=== PATIENT | male | born 1960 | race Caucasian/White ===

== ENCOUNTER 2017-09-19 10:36 | Emergency (ER) | payer OTHER, SELFPAY ==
--- NOTE | 2017-09-19 10:49 | ED_ITS ---
HPI - Anxiety <JENY Lucero - Last Filed: 09/19/17 20:55> General Chief Complaint: Hypertension Stated Complaint: HIGH BP, ANXIETY Time Seen by Provider: 09/19/17 10:49 Source: patient Mode of arrival: ambulatory Limitations: no limitations History of Present Illness HPI narrative: 57-year-old male here for complaint of having feelings of anxiousness over the past couple of days. He also states that he has had some mild lightheadedness. A clean over the same timeframe. He denies any shortness of breath. No chest pain. He reports that he is recently started a new blood pressure medicine amlodipine and thought that his blood pressure was a little high earlier today when it was 150 over 90. He denies any chest pain. No fevers no chills. He denies any nausea vomiting. Positive p.o. intake. No other concerns or complaints at this time. MD complaint: anxiety Related Data Home Medications Medication Instructions Recorded Confirmed fexofenadine 180 mg PO QDAY #0 tab 11/04/15 09/19/17 imipramine HCl 25 mg PO BEDTIME #0 tab 11/04/15 09/19/17 meclizine 25 mg PO PRN PRN #0 11/04/15 09/19/17 multivitamin [Multiple Vitamins] 1 tab PO QDAY #0 tab 11/04/15 09/19/17 pravastatin 20 mg PO BEDTIME #0 11/04/15 09/19/17 sertraline 50 mg PO QDAY #0 11/04/15 09/19/17 tadalafil [Cialis] 20 mg PO PRN PRN #0 11/04/15 09/19/17 tamsulosin [Flomax] 0.4 mg PO BID #0 11/04/15 09/19/17 Vitamin C 1 tab PO DAILY 09/19/17 09/19/17 amlodipine 5 mg PO DAILY 09/19/17 09/19/17 colchicine [Colcrys] 0.6 mg PO BID 09/19/17 09/19/17 duloxetine 60 mg PO DAILY 09/19/17 09/19/17 gemfibrozil 600 mg PO BID 09/19/17 09/19/17 hyoscyamine sulfate 1 tab PO DIRECTED PRN 09/19/17 09/19/17 lisinopril 40 mg PO BID 09/19/17 09/19/17 omeprazole 20 mg PO DAILY 09/19/17 09/19/17 polyethylene glycol 3350 [Miralax] 1 packet PO DAILY 09/19/17 09/19/17 propranolol 10 mg PO BID 09/19/17 09/19/17 vitamin E 1 cap PO DAILY 09/19/17 09/19/17 Allergies Allergy/AdvReac Type Severity Reaction Status Date / Time No Known Drug Allergies Allergy Verified 09/19/17 13:16 Review of Systems <JENY Lucero - Last Filed: 09/19/17 20:55> Constitutional Denies chills, Denies fever(s), Denies lethargy and Denies weakness Eyes Denies change in vision, Denies eye discharge, Denies irritation and Denies loss of vision ENT Ears, Nose, Mouth, and Throat: Denies change in voice, Denies neck pain and Denies sore throat Cardiovascular Denies chest pain, Denies irregular heart rhythm, Denies lightheadedness, Denies palpitations, Denies dyspnea, Denies dyspnea on exertion and Denies orthopnea Respiratory Denies cough, Denies dyspnea, Denies dyspnea on exertion and Denies wheezing Gastrointestinal Gastrointestinal: Denies abdominal pain, Denies change in bowel habits, Denies diarrhea, Denies nausea and Denies vomiting Genitourinary Denies hematuria, Denies flank pain, Denies urinary incontinence and Denies urinary urgency Musculoskeletal Denies neck pain Neurologic Denies confusion, Denies loss of vision and Denies weakness Comments: Anxiety and periodic lightheadedness Psychiatric Denies anxiety, Denies confusion, Denies depression, Denies homicidal ideation and Denies suicidal ideation Endocrine Denies palpitations Allergic/Immunologic Denies wheezing Exam <JENY Lucero - Last Filed: 09/19/17 20:55> Initial Vital Signs Initial Vital Signs: Vital Signs Temperature 98.0 F 09/19/17 10:51 Pulse Rate 75 09/19/17 10:51 Respiratory Rate 20 09/19/17 10:51 Blood Pressure 129/94 H 09/19/17 10:51 Pulse Oximetry 98 09/19/17 10:51 Const General: cooperative and well developed Nutritional Appearance: well nourished Orientation: alert, awake, oriented x3 and not confused HENMT Mouth: oral mucosae normal and moist mucous membranes Eyes Conjunctivae: conjunctivae normal Sclera: sclerae normal Pupils: PERRL EOM: EOM intact bilaterally Resp Effort & Inspection: normal respiratory effort, able to speak in complete sentences, no respiratory distress and no use of accessory muscles Auscultation: clear to auscultation bilaterally, no rales, no rhonchi and no wheezes Cardio Rate: regular rate Rhythm: regular rhythm Heart Sounds: no click, no gallops, no murmurs and no rubs Pulses: normal peripheral pulses Skin General: no rashes or lesions noted, No jaundice and No petechiae Neuro General: alert, oriented x3, gait normal and no focal motor deficits Speech: speech normal Psych Appearance: well kempt Mental Status: mental status grossly normal Attitude: cooperative Thought Content: normal and suicidality Judgment: judgment good <Chan Almaraz DO - Last Filed: 09/20/17 19:28> Initial Vital Signs Initial Vital Signs: Vital Signs Temperature 98.0 F 09/19/17 10:51 Pulse Rate 75 09/19/17 10:51 Respiratory Rate 20 09/19/17 10:51 Blood Pressure 129/94 H 09/19/17 10:51 Pulse Oximetry 98 09/19/17 10:51 Course <JENY Lucero - Last Filed: 09/19/17 20:55> Orders Ordered: Discontinued Medications Sodium Chloride (Normal Saline 0.9%) 1,000 mls @ 1,000 mls/hr IV BOLUS ONE Stop: 09/19/17 12:31 Last Infusion: 09/19/17 13:59 Dose: 0 mls/hr Infusion: 09/19/17 13:16 Dose: 1,000 mls/hr Infusion: 09/19/17 12:50 Dose: 0 mls/hr Admin: 09/19/17 12:15 Dose: 1,000 mls/hr Sodium Chloride (Normal Saline 0.9%) 1,000 mls @ 1,000 mls/hr IV BOLUS ONE Stop: 09/19/17 13:48 Last Admin: 09/19/17 13:17 Dose: Vital Signs - 8 hr 09/19/17 13:11 09/19/17 14:00 09/19/17 14:51 Pulse Rate 69 75 Pulse Rate [Orthostatic Lying] 71 Pulse Rate [Orthostatic Sitting] 85 Pulse Rate [Orthostatic Standing] 78 Respiratory Rate 16 16 Blood Pressure 144/87 H Blood Pressure [Left Arm] 143/86 H Blood Pressure [Orthostatic Lying] 133/76 H Blood Pressure [Orthostatic Sitting] 137/86 H Blood Pressure [Orthostatic Standing] 140/85 H Pulse Oximetry 100 100 <Chan Almaraz DO - Last Filed: 09/20/17 19:28> Orders Ordered: Discontinued Medications Sodium Chloride (Normal Saline 0.9%) 1,000 mls @ 1,000 mls/hr IV BOLUS ONE Stop: 09/19/17 12:31 Last Infusion: 09/19/17 13:59 Dose: 0 mls/hr Infusion: 09/19/17 13:16 Dose: 1,000 mls/hr Infusion: 09/19/17 12:50 Dose: 0 mls/hr Admin: 09/19/17 12:15 Dose: 1,000 mls/hr Sodium Chloride (Normal Saline 0.9%) 1,000 mls @ 1,000 mls/hr IV BOLUS ONE Stop: 09/19/17 13:48 Last Admin: 09/19/17 13:17 Dose: Vital Signs - 8 hr 09/19/17 13:11 09/19/17 14:00 09/19/17 14:51 Pulse Rate 69 75 Pulse Rate [Orthostatic Lying] 71 Pulse Rate [Orthostatic Sitting] 85 Pulse Rate [Orthostatic Standing] 78 Respiratory Rate 16 16 Blood Pressure 144/87 H Blood Pressure [Left Arm] 143/86 H Blood Pressure [Orthostatic Lying] 133/76 H Blood Pressure [Orthostatic Sitting] 137/86 H Blood Pressure [Orthostatic Standing] 140/85 H Pulse Oximetry 100 100 MDM - Anxiety <JENY Lucero - Last Filed: 09/19/17 20:55> Lab Data Result diagrams: 09/19/17 11:56 09/19/17 11:56 Lab Results 09/19/17 09/19/17 Range/Units 11:56 11:56 WBC 4.9 (4.5-11.0) X10^3/uL RBC 4.52 (4.5-5.9) X10^6/uL Hgb 14.1 (13.5-17.5) g/dL Hct 39.6 L (41-53) % MCV 87.6 (80-100) fL MCH 31.2 (26-34) PG MCHC 35.6 (30-36) % RDW 13.6 (11.6-14.8) % Plt Count 242 (150-400) X10^3/uL Neut % (Auto) 51.3 (50-75) % Lymph % (Auto) 35.2 (25-40) % Gulf % (Auto) 11.1 (3-14) % Eos % (Auto) 1.8 L (2-4) % Baso % (Auto) 0.6 (0-2) % Neut # (Auto) 2500 L (9371-8725) /uL Sodium 138 (137-145) mmol/L Potassium 4.6 (3.4-5.1) mmol/L Chloride 104 (98-107) mmol/L Carbon Dioxide 28 (22-32) mmol/L BUN 25 H (9-20) mg/dL Creatinine 1.70 H (0.66-1.25) mg/dL Estimated GFR 41.9 L (>60) mL/min BUN/Creatinine Ratio 14.7 (6-22) Glucose 114 H (70-100) mg/dL Calcium 9.5 (8.4-10.2) mg/dL Total Bilirubin 0.5 (0.2-1.3) mg/dL AST 30 (17-59) IU/L ALT 33 (21-72) IU/L Alkaline Phosphatase 109 (38-126) U/L Total Creatine Kinase 44 L (55-170) U/L Troponin I < 0.012 (0.01-0.034) ng/mL Total Protein 6.7 (6.3-8.2) g/dL Albumin 3.9 (3.5-5.0) g/dL Globulin 2.8 (1.7-4.1) g/dL Albumin/Globulin Ratio 1.4 (1.0-2.8) Imaging Data CT scan - head: Radiologist's impression: Patient: Allan Bruno MR#: [id number] : 1960 Acct:[id number] Age/Sex: 57 / M Date of Service: 09/19/17 Loc: ED Accession Number: [id number] Procedure: CT head/brain wo con Ordering Provider: Tom Piña PROCEDURE: CT HEAD/BRAIN WO CON INDICATIONS: Lightheadedness and dizziness TECHNIQUE: Noncontrast 4.5 mm thick angled axial sections acquired from the foramen magnum to the vertex, with coronal and sagittal reformats. For radiation dose reduction, the following was used: automated exposure control, adjustment of mA and/or kV according to patient size. COMPARISON: None. FINDINGS: Image quality: Excellent. CSF spaces: Basal cisterns are patent. No extra-axial fluid collections. Ventricles are normal in size and shape. Brain: No midline shift. No intracranial masses or hemorrhage. Devries-white matter interface is normal. Skull and face: Calvarium and visualized facial bones are intact, without suspicious lesions. Sinuses: Visualized sinuses and mastoids are clear. IMPRESSION: 1. No acute intracranial process. chest ct: Radiologist's impression: PROCEDURE: CT CHEST W CON INDICATIONS: Left upper lobe nodule seen on x-ray TECHNIQUE: After the administration of intravenous contrast, 5 mm thick sections acquired from the pulmonary apices to the posterior costophrenic angles. 7 mm thick coronal and sagittal MIP reformats were acquired. For radiation dose reduction, the following was used: automated exposure control, adjustment of mA and/or kV according to patient size. GFR is elevated and patient was hydrated with reduced volume of contrast for the exam. COMPARISON: [facility], CR, XR CHEST 1V, 09/19/2017, 11:14. FINDINGS: Image quality: Excellent. Lungs and pleura: A 10 x 11 by 15 mm lobulated pulmonary nodule in the central left upper lobe is verified. A 5 mm subpleural calcification is present in the posterior right lower lobe, series 3/image 36. A 3 mm nodule in the right lower lobe laterally is present on image 40. No pleural effusions or pneumothorax. Central and peripheral airways are patent and normal in caliber. Mediastinum: Heart size is normal. No pericardial effusion. No mediastinal or hilar adenopathy by size criteria. Thoracic aorta and central pulmonary arteries are normal in size. Esophagus is normal in caliber. No hiatal hernia. Bones and chest wall: No suspicious bony lesions. No vertebral body compression fractures. No axillary or supraclavicular adenopathy by size criteria. Thyroid gland appears normal. Abdomen: Visualized upper abdominal solid organs appear normal. Upper abdominal bowel loops are normal in caliber. IMPRESSION: 1. Solitary left upper lobe pulmonary nodule with lobulated otherwise smooth margins remain suspect for primary pulmonary malignancy. No previous exams are available to determine chronicity. Central location is suboptimal for cutaneous needle biopsy , but also fairly peripheral for bronchoscopic biopsy. PET/CT imaging is recommended to better determine the metabolic activity of this finding before percutaneous biopsy is attempted. 2. Subcentimeter calcified and noncalcified nodules are found in the right lower lobe, compatible with previous granulomatous infection. 3. No lymphadenopathy by size criteria. No pleural effusions. Upper abdomen is unremarkable. Dictated by: Brett Faustin M.D. on 09/19/2017 at 13:11 Approved by: Brett Faustin M.D. on 09/19/2017 at 13:24 ECG Data Interpretation: EKG shows normal sinus rhythm with no ST elevation or depression. No ectopy. Ventricular rate is 67. Pr interval of 170. QRS duration of 116. QT 398. MDM Narrative Medical decision making narrative: CBC was obtained was unremarkable. Chem panel shows GFR of 41.9 and a creatinine of 1.7 patient states that he is normally in the 40s for GFR. EKG shows sinus rhythm with no ST elevation or depression. Cardiac enzymes were obtained were unremarkable. CT of the head was obtained was negative for any acute findings. Chest x-ray shows small nodule to left upper lobe. CT scan of the chest with contrast was requested by Radiology. Discussed with Radiology his GFR and also his creatinine ratio. Radiology would still rather have a CT with contrast to make sure that he did not have any findings inside of his lymph nodes. Patient was given fluids here in the emergency room to help with contrast. CT scan confirms that there is a 0 1-1.5 cm lobulated nodule to the left upper lobe suspicious for malignancy. Patient states he felt better after receiving fluids here in the emergency room. Will patient follow up with primary care provider for further evaluation and treatment. <Chan Almaraz, DO - Last Filed: 09/20/17 19:28> Lab Data Lab Results 09/19/17 09/19/17 Range/Units 11:56 11:56 WBC 4.9 (4.5-11.0) X10^3/uL RBC 4.52 (4.5-5.9) X10^6/uL Hgb 14.1 (13.5-17.5) g/dL Hct 39.6 L (41-53) % MCV 87.6 (80-100) fL MCH 31.2 (26-34) PG MCHC 35.6 (30-36) % RDW 13.6 (11.6-14.8) % Plt Count 242 (150-400) X10^3/uL Neut % (Auto) 51.3 (50-75) % Lymph % (Auto) 35.2 (25-40) % Gulf % (Auto) 11.1 (3-14) % Eos % (Auto) 1.8 L (2-4) % Baso % (Auto) 0.6 (0-2) % Neut # (Auto) 2500 L (9139-1967) /uL Sodium 138 (137-145) mmol/L Potassium 4.6 (3.4-5.1) mmol/L Chloride 104 (98-107) mmol/L Carbon Dioxide 28 (22-32) mmol/L BUN 25 H (9-20) mg/dL Creatinine 1.70 H (0.66-1.25) mg/dL Estimated GFR 41.9 L (>60) mL/min BUN/Creatinine Ratio 14.7 (6-22) Glucose 114 H (70-100) mg/dL Calcium 9.5 (8.4-10.2) mg/dL Total Bilirubin 0.5 (0.2-1.3) mg/dL AST 30 (17-59) IU/L ALT 33 (21-72) IU/L Alkaline Phosphatase 109 (38-126) U/L Total Creatine Kinase 44 L (55-170) U/L Troponin I < 0.012 (0.01-0.034) ng/mL Total Protein 6.7 (6.3-8.2) g/dL Albumin 3.9 (3.5-5.0) g/dL Globulin 2.8 (1.7-4.1) g/dL Albumin/Globulin Ratio 1.4 (1.0-2.8) Discharge Plan Departure Patient Disposition: Home, Self-Care Clinical Impression: Light-headedness, Incidental pulmonary nodule Discharge Date/Time: 09/19/17 14:52 Interventions: ED Discharge Assessment Last Done: 09/19/17 14:51 Instructions: DI for Dizziness-Nonvertigo Activity Restrictions/Additional Instructions: Laboratory results indicate decreased kidney function otherwise was unremarkable. Cardiac enzymes and EKG were unremarkable. Chest x-ray and chest CT show a 1 2-1/2 cm nodule to the left upper lobe of the lung of unknown origin. Recommend following up with primary care provider for referral for further evaluation such as biopsy for further evaluation. No other findings today point to reasons for having feelings of anxiety and also lightheadedness. Follow up with her primary care provider in the next few days for re- evaluation. For any worsening symptoms return to the emergency room. Prescriptions: No Action tamsulosin [Flomax] 0.4 MG capsule,extended release 24hr 0.4 mg PO BID Qty: 0 RF: 0 fexofenadine 180 MG tablet 180 mg PO QDAY Qty: 0 RF: 0 sertraline 50 MG tablet 50 mg PO QDAY Qty: 0 RF: 0 pravastatin 20 MG tablet 20 mg PO BEDTIME Qty: 0 RF: 0 imipramine HCl 25 MG tablet 25 mg PO BEDTIME Qty: 0 RF: 0 multivitamin [Multiple Vitamins] 1 EACH tablet 1 tab PO QDAY Qty: 0 RF: 0 meclizine 25 MG tablet 25 mg PO PRN PRN (Reason: Vertigo) Qty: 0 RF: 0 tadalafil [Cialis] 20 MG tablet 20 mg PO PRN PRN (Reason: Sexual Activity) Qty: 0 RF: 0 polyethylene glycol 3350 [Miralax] 17 gram Powder In Packet 1 packet PO DAILY RF: 0 lisinopril 40 mg Tablet 40 mg PO BID RF: 0 Vitamin C 1 tab PO DAILY RF: 0 vitamin E 1 cap PO DAILY RF: 0 amlodipine 5 mg Tablet 5 mg PO DAILY RF: 0 propranolol 10 mg Tablet 10 mg PO BID RF: 0 gemfibrozil 600 mg Tablet 600 mg PO BID RF: 0 hyoscyamine sulfate 0.125 mg Tablet 1 tab PO DIRECTED PRN (Reason: as directed) RF: 0 omeprazole 20 mg Capsule,Delayed Release(Dr/Ec) 20 mg PO DAILY RF: 0 colchicine [Colcrys] 0.6 mg Tablet 0.6 mg PO BID RF: 0 duloxetine 60 mg Capsule,Delayed Release(Dr/Ec) 60 mg PO DAILY RF: 0 Referrals: Irasema Collins PA-C [Primary Care Provider] - <Chan Almaraz DO - Last Filed: 08/15/18 19:28> Cosign ED Attending Krysta Attestation: I was available for consultation during this patient's emergency department encounter
[2017-09-19 10:51] VITALS: BP 129/94; PULSE 75; RESP 20; TEMP 36.7; O2SAT 98
--- NOTE | 2017-09-19 11:32 | DI.RAD.S_ITS ---
PROCEDURE: XR CHEST 1V INDICATIONS: Lightheadedness and dizziness TECHNIQUE: One view of the chest was acquired. COMPARISON: [facility], CT, CT HEAD/BRAIN WO CON, 09/19/2017, 11:34. FINDINGS: Surgical changes and devices: None. Lungs and pleura: No pleural effusions or pneumothorax. A 1.8 cm pulmonary nodule is present in the suprahilar region of the left upper lobe. Remainder of lungs is clear. Mediastinum: Mediastinal contours appear normal. Heart size is normal. Bones and chest wall: No suspicious bony lesions. Thoracic spondylosis. Overlying soft tissues appear unremarkable. IMPRESSION: Left upper lobe pulmonary mass, suspect for primary bronchogenic carcinoma. Recommend contrast enhanced CT chest for further evaluation Dictated by: Brett Faustin M.D. on 09/19/2017 at 11:51 Approved by: Brett Faustin M.D. on 09/19/2017 at 11:54
--- NOTE | 2017-09-19 11:36 | DI.CT.S_ITS ---
PROCEDURE: CT HEAD/BRAIN WO CON INDICATIONS: Lightheadedness and dizziness TECHNIQUE: Noncontrast 4.5 mm thick angled axial sections acquired from the foramen magnum to the vertex, with coronal and sagittal reformats. For radiation dose reduction, the following was used: automated exposure control, adjustment of mA and/or kV according to patient size. COMPARISON: None. FINDINGS: Image quality: Excellent. CSF spaces: Basal cisterns are patent. No extra-axial fluid collections. Ventricles are normal in size and shape. Brain: No midline shift. No intracranial masses or hemorrhage. Devries-white matter interface is normal. Skull and face: Calvarium and visualized facial bones are intact, without suspicious lesions. Sinuses: Visualized sinuses and mastoids are clear. IMPRESSION: 1. No acute intracranial process. Dictated by: Meme Hsieh M.D. on 09/19/2017 at 11:46 Approved by: Meme Hsieh M.D. on 09/19/2017 at 11:48
[2017-09-19 11:59] VITALS: BP 130/94; PULSE 74; RESP 12; O2SAT 99
[2017-09-19 12:03] LABS: Add Manual Diff / Slide Review NO; Basophils Percent Auto 0.6 % (0-2); Eosinophils Percent Auto 1.8 % (2-4); Hematocrit 39.6 % (41-53); Hemoglobin 14.1 g/dL (13.5-17.5); Lymphocytes Percent Auto 35.2 % (25-40); Mean Corpuscular HGB Conc 35.6 % (30-36); Mean Corpuscular Hemoglobin 31.2 PG (26-34); Mean Corpuscular Volume 87.6 fL (80-100); Monocytes Percent Auto 11.1 % (3-14); Neutrophils Absolute Auto 2500 /uL (3000-5900); Neutrophils Percent Auto 51.3 % (50-75); Platelet Count 242 X10^3/uL (150-400); Red Blood Cell Count 4.52 X10^6/uL (4.5-5.9); Red Cell Distribution Width 13.6 % (11.6-14.8); White Blood Cell Count 4.9 X10^3/uL (4.5-11.0)
[2017-09-19 12:14] LABS: Alanine Aminotransferase 33 IU/L (21-72); Albumin 3.9 g/dL (3.5-5.0); Albumin Globulin Ratio 1.4 (1.0-2.8); Alkaline Phosphatase 109 U/L (38-126); Aspartate Aminotransferase 30 IU/L (17-59); BUN Creatinine Ratio 14.7 (6-22); Bilirubin Total 0.5 mg/dL (0.2-1.3); Blood Urea Nitrogen 25 mg/dL (9-20); Calcium 9.5 mg/dL (8.4-10.2); Carbon Dioxide 28 mmol/L (22-32); Chloride 104 mmol/L (98-107); Creatine Kinase 44 U/L (55-170); Estimated Glomerular Filt Rate 41.9 mL/min (>60); Globulin 2.8 g/dL (1.7-4.1); Glucose 114 mg/dL (70-100); HEMOLYSIS < 15 (0-50); Potassium 4.6 mmol/L (3.4-5.1); Sodium 138 mmol/L (137-145); Total Protein 6.7 g/dL (6.3-8.2)
[2017-09-19] MEDS: SODIUM CHLORIDE 0.9% 1,000 ML 1000 ML IV (12:15)
[2017-09-19 12:26] LABS: Troponin I < 0.012 ng/mL (0.01-0.034)
[2017-09-19 12:30] VITALS: BP 141/88
--- NOTE | 2017-09-19 12:40 | DI.CT.S_ITS ---
PROCEDURE: CT CHEST W CON INDICATIONS: Left upper lobe nodule seen on x-ray TECHNIQUE: After the administration of intravenous contrast, 5 mm thick sections acquired from the pulmonary apices to the posterior costophrenic angles. 7 mm thick coronal and sagittal MIP reformats were acquired. For radiation dose reduction, the following was used: automated exposure control, adjustment of mA and/or kV according to patient size. GFR is elevated and patient was hydrated with reduced volume of contrast for the exam. COMPARISON: [facility], CR, XR CHEST 1V, 09/19/2017, 11:14. FINDINGS: Image quality: Excellent. Lungs and pleura: A 10 x 11 by 15 mm lobulated pulmonary nodule in the central left upper lobe is verified. A 5 mm subpleural calcification is present in the posterior right lower lobe, series 3/image 36. A 3 mm nodule in the right lower lobe laterally is present on image 40. No pleural effusions or pneumothorax. Central and peripheral airways are patent and normal in caliber. Mediastinum: Heart size is normal. No pericardial effusion. No mediastinal or hilar adenopathy by size criteria. Thoracic aorta and central pulmonary arteries are normal in size. Esophagus is normal in caliber. No hiatal hernia. Bones and chest wall: No suspicious bony lesions. No vertebral body compression fractures. No axillary or supraclavicular adenopathy by size criteria. Thyroid gland appears normal. Abdomen: Visualized upper abdominal solid organs appear normal. Upper abdominal bowel loops are normal in caliber. IMPRESSION: 1. Solitary left upper lobe pulmonary nodule with lobulated otherwise smooth margins remain suspect for primary pulmonary malignancy. No previous exams are available to determine chronicity. Central location is suboptimal for cutaneous needle biopsy, but also fairly peripheral for bronchoscopic biopsy. PET/CT imaging is recommended to better determine the metabolic activity of this finding before percutaneous biopsy is attempted. 2. Subcentimeter calcified and noncalcified nodules are found in the right lower lobe, compatible with previous granulomatous infection. 3. No lymphadenopathy by size criteria. No pleural effusions. Upper abdomen is unremarkable. Dictated by: Brett Faustin M.D. on 09/19/2017 at 13:11 Approved by: Brett Faustin M.D. on 09/19/2017 at 13:24
[2017-09-19 13:11] VITALS: BP 143/86; PULSE 69; RESP 16; O2SAT 100
[2017-09-19 14:00] VITALS: BP 133/76; BP 137/86; BP 140/85; PULSE 71; PULSE 78; PULSE 85
[2017-09-19 14:51] VITALS: BP 144/87; PULSE 75; RESP 16; O2SAT 100
== END 2017-09-19 14:52 | disposition home or self-care (01) ==
PROVIDERS: Emergency Provider Nurse Practitioner Family; PCP Physician Assistant Medical
DX: R42 Dizziness and giddiness (principal); R91.1 Solitary pulmonary nodule
CPT/HCPCS: 36591; 70450; 71045; 71260; 80053; 82550; 82553; 84484; 85025; 93005; 93010; 96360; 99284; 99285; Q9967

== ENCOUNTER → 2018-06-01 11:09 | Outpatient (CLI) | payer OTHER, SELFPAY ==
--- NOTE | 2018-06-01 | DI.MRI.S_ITS ---
PROCEDURE: MR LUMBAR SPINE WO CON INDICATIONS: Paresthesia of skin Degenerative disc disease TECHNIQUE: Noncontrast sagittal T1 spin echo and T2 fast echo, sagittal STIR, axial T1 and T2 fast spin echo through the lumbar spine. In cases with scoliosis, additional coronal T2 fast spin echo may be performed. COMPARISON: [facility], MR, MR THORACIC SPINE WO CON, 06/01/2018, 11:20. [facility], CT, CT CHEST W CON, 09/19/2017, 12:52. FINDINGS: Image quality: Excellent. Alignment and Curvature: Grade 1/2 anterolisthesis is seen at the L5-S1 level. There are associated bilateral pars defects. Bone Marrow: Marrow is of normal overall signal. No acute vertebral body compression fractures. Spinal Cord: Conus medullaris terminates at the L1 level. Visualized cord demonstrates normal signal and size. Paraspinous Soft Tissues: No paravertebral masses. Bilateral renal cysts can be seen. T12-L1: Normal appearance. L1-L2: Normal appearance. L2-L3: No significant abnormality is seen. L3-L4: The disc height is well-preserved. Loss of disc signal is seen at this level. Mild generalized disc bulge is seen. [id number] facet hypertrophy is seen. No significant neural foraminal or central canal narrowing can be seen. L4-L5: The disc height is well-preserved. Loss of disc signal is seen at this level. Mild generalized disc bulge is seen. [id number] facet hypertrophy is seen. Moderate bilateral neural foraminal narrowing is seen. No significant central canal narrowing is seen. L5-S1: There is severe loss of disc height, with vertebral body fusion at this level. Prominent facet hypertrophy is seen. Moderate to severe bilateral neural foraminal narrowing is seen. There is a degree of compression seen upon the exiting nerve roots. No central canal narrowing is seen. IMPRESSION: At L5-S1 level, there is grade 1/2 anterolisthesis seen, with associated bilateral pars defects. There is severe disc space narrowing, with vertebral body fusion. Moderate to severe bilateral neural foraminal narrowing is seen at this level, with associated bilateral L5 exiting nerve root compression. Dictated by: Chirag Bunn M.D. on 06/01/2018 at 11:45 Approved by: Chirag Bunn M.D. on 06/01/2018 at 11:49
--- NOTE | 2018-06-01 | DI.MRI.S_ITS ---
PROCEDURE: MR THORACIC SPINE WO CON INDICATIONS: Paresthesia of skin Degenerative disc disease TECHNIQUE: Noncontrast sagittal T1 spine echo and T2 fast spin echo, sagittal STIR, axial T1 and T2 fast spin echo through the thoracic spine. COMPARISON: [facility], MR, MR LUMBAR SPINE WO CON, 06/01/2018, 11:41. [facility], CT, CT CHEST W CON, 09/19/2017, 12:52. FINDINGS: Image quality: Diagnostic. Alignment and Curvature: Accentuated thoracic kyphosis is seen. No focal AP alignment abnormality is seen. Bone Marrow: Marrow is of normal overall signal. No acute vertebral body compression fractures. Spinal Cord: Visualized spinal cord is normal in size and signal. Paraspinous Soft Tissues: No paravertebral masses. Miscellaneous: Within the mid to lower thoracic spine, there is mild to moderate loss of disc height seen, with associated endplate irregularity and endplate osteophyte formation. On axial images, central canal and foramina appear widely patent at all scanned levels. IMPRESSION: No significant thoracic spine MRI abnormality is seen. Dictated by: Chirag Bunn M.D. on 06/01/2018 at 11:43 Approved by: Chirag Bunn M.D. on 06/01/2018 at 11:45
== END ==
PROVIDERS: PCP Physician Assistant Medical; Visit Provider Physician Assistant Medical
DX: M51.34 Other intervertebral disc degeneration, thoracic region (principal); R20.2 Paresthesia of skin; M43.17 Spondylolisthesis, lumbosacral region; M48.07 Spinal stenosis, lumbosacral region; M48.061 Spinal stenosis, lumbar region without neurogenic claudication
CPT/HCPCS: 72146; 72148

== ENCOUNTER → 2019-01-22 12:12 | Outpatient (CLI) | payer OTHER, SELFPAY ==
--- NOTE | 2019-01-22 12:21 | DI.CT.S_ITS ---
PROCEDURE: CT ABDOMEN PELVIS WO CON INDICATIONS: left lower quadrant pain TECHNIQUE: After the administration of oral contrast, 5 mm thick sections acquired from the diaphragms to the symphysis. 5 mm coronal and sagittal reformats were performed. For radiation dose reduction, the following was used: automated exposure control, adjustment of mA and/or kV according to patient size. COMPARISON: None. FINDINGS: Image quality: Excellent. ABDOMEN: Lung bases: Lung bases are clear. Heart size is normal. Solid organs: Liver is normal in size. Gallbladder is unremarkable. Pancreas is normal in size. Spleen is normal in size. No adrenal nodules. Both kidneys are normal in size, without hydronephrosis or nephrolithiasis. Peritoneum and bowel: Question mild thickening of the wall of the terminal ileum versus appearance secondary to nondistended bowel. Bowel loops demonstrate normal wall thickness and caliber. No free fluid or air. Sigmoid diverticulosis without evidence of diverticulitis. Nodes and vessels: No retroperitoneal or mesenteric adenopathy by size criteria. Aorta and inferior vena cava are normal in size. Miscellaneous: No ventral hernias. PELVIS: Genitourinary: Bladder wall thickness is normal. Miscellaneous: No inguinal hernias or adenopathy. Bones: No suspicious bony lesions. No vertebral body compression fractures. There is grade 1 anterolisthesis of L5 on S1. There is fusion of the disc at L5-S1. There is severe bilateral foraminal narrowing L5-S1. IMPRESSION: 1. No evidence of acute diverticulitis. No findings which explain left lower quadrant pain. 2. Diverticulosis. 3. Question mild terminal ileal wall thickening versus nondistended bowel. 4. Incidental note is made of anterolisthesis of L5 on S1 with resultant severe bilateral bony foraminal narrowing. Dictated by: Ronald Dickinson M.D. on 01/22/2019 at 14:57 Approved by: Ronald Dickinson M.D. on 01/22/2019 at 15:02
[2019-01-22 12:52] LABS: Alanine Aminotransferase 21 IU/L (<50); Albumin 4.1 g/dL (3.5-5.0); Albumin Globulin Ratio 1.3 (1.0-2.8); Alkaline Phosphatase 126 U/L (38-126); Aspartate Aminotransferase 29 IU/L (17-59); BUN Creatinine Ratio 13.6 (6-22); Bilirubin Total 0.6 mg/dL (0.2-1.3); Blood Urea Nitrogen 30 mg/dL (9-20); Calcium 9.4 mg/dL (8.4-10.2); Carbon Dioxide 26 mmol/L (22-32); Chloride 106 mmol/L (98-107); Globulin 3.1 g/dL (1.7-4.1); Glucose 145 mg/dL (70-100); HEMOLYSIS < 15 (0-50); Lipase 99 U/L (23-300); Sodium 139 mmol/L (137-145); Total Protein 7.2 g/dL (6.3-8.2)
== END ==
PROVIDERS: PCP Physician Assistant Medical; Visit Provider Physician Assistant Medical
DX: R10.32 Left lower quadrant pain (principal); K57.30 Diverticulosis of large intestine without perforation or abscess without bleeding; M43.17 Spondylolisthesis, lumbosacral region; M48.07 Spinal stenosis, lumbosacral region
CPT/HCPCS: 36415; 74176; 74177; 80053; 83690; Q9967

== ENCOUNTER → 2019-03-06 12:38 | Outpatient (CLI) | payer OTHER, SELFPAY ==
--- NOTE | 2019-03-06 | DI.RAD.S_ITS ---
PROCEDURE: FL FLUOROSCOPY >1HR COMPARISON: None. 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 No evidence for presence of diaphragmatic paralysis. IMPRESSION: No evidence for presence of diaphragmatic paralysis either unilateral or bilateral. Dictated by: Enrique Rowland M.D. on 03/06/2019 at 16:15 Approved by: Enrique Rowland M.D. on 03/06/2019 at 16:16
== END ==
PROVIDERS: PCP Physician Assistant Medical; Visit Provider Nurse Practitioner
DX: C34.12 Malignant neoplasm of upper lobe, left bronchus or lung (principal); J98.6 Disorders of diaphragm
CPT/HCPCS: 76000

== ENCOUNTER → 2019-06-20 14:43 | Outpatient (CLI) | payer OTHER, SELFPAY ==
--- NOTE | 2019-06-20 14:53 | DI.CT.S_ITS ---
PROCEDURE: CT CHEST WO CON INDICATIONS: LEFT LUNG CANCER TECHNIQUE: Noncontrast 5 mm thick sections acquired from the pulmonary apices to the posterior costophrenic angles. 1 mm lung window, 5 mm thick coronal and sagittal and 7 mm axial MIP reformats were then acquired. For radiation dose reduction, the following was used: automated exposure control, adjustment of mA and/or kV according to patient size. COMPARISON: [facility], CT, CT ABDOMEN PELVIS WO CON, 01/22/2019, 14:24. [facility], CT, CT CHEST W CON, 09/19/2017, 12:52. FINDINGS: Image quality: Excellent. Lungs and pleura: Scarring in the left upper lobe. Partial left upper lobectomy. No mass or significant pulmonary nodule. A few calcified granuloma. No pleural effusions or pneumothorax. Central and peripheral airways are patent and normal in caliber. Mediastinum: Heart size is normal. No pericardial effusion. No enlarged mediastinal lymph nodes. Thoracic aorta and central pulmonary arteries are normal in size. Esophagus is normal in caliber. No hiatal hernia. Bones and chest wall: No suspicious bony lesions. No vertebral body compression fractures. No axillary or supraclavicular adenopathy by size criteria. Thyroid gland is unremarkable. Abdomen: Visualized upper abdominal solid organs and bowel loops appear normal in the absence of contrast. Probable small left kidney hyperdense cyst, unchanged. IMPRESSION: No recurrent or metastatic disease. No adenopathy seen. Dictated by: Theron Peralta M.D. on 06/20/2019 at 15:21 Approved by: Theron Peralta M.D. on 06/20/2019 at 15:30
== END ==
PROVIDERS: PCP Physician Assistant Medical; Visit Provider Nurse Practitioner
DX: C34.12 Malignant neoplasm of upper lobe, left bronchus or lung (principal)
CPT/HCPCS: 71250

== ENCOUNTER → 2020-02-27 13:58 | Outpatient (CLI) | payer OTHER, SELFPAY ==
--- NOTE | 2020-02-27 14:13 | DI.CT.S_ITS ---
PROCEDURE: CT CHEST WO CON INDICATIONS: Malignant neoplasm of upper lobe, left bronchus or TECHNIQUE: Noncontrast 5 mm thick sections acquired from the pulmonary apices to the posterior costophrenic angles. 1 mm lung window, 5 mm thick coronal and sagittal and 7 mm axial MIP reformats were then acquired. For radiation dose reduction, the following was used: automated exposure control, adjustment of mA and/or kV according to patient size. COMPARISON: [facility], CT, CT CHEST W CON, 09/19/2017, 12:52. [facility], CT, CT ABDOMEN PELVIS WO CON, 01/22/2019, 14:24. [facility], CT, CT CHEST WO CON, 06/20/2019, 14:45. FINDINGS: Image quality: Excellent. Lungs and pleura: There are postsurgical changes in the left upper lobe. A linear density with irregular thickening is seen in the left apex anteriorly, unchanged compared to the last exam dated 06/20/2019. There is a 6 mm calcified nodule in the right lower lobe (series 3, image 179), unchanged in size and compatible with an old granuloma. Mild emphysema. There is mild ground-glass infiltrate in the right lower lobe posterior medially. No pleural effusions or pneumothorax. Central and peripheral airways are patent and normal in caliber. Mediastinum: Heart size is normal. No pericardial effusion. No mediastinal adenopathy by size criteria. Thoracic aorta and central pulmonary arteries are normal in size. Esophagus is normal in caliber. No hiatal hernia. Bones and chest wall: No suspicious bony lesions. No vertebral body compression fractures. No axillary or supraclavicular adenopathy by size criteria. Thyroid gland is normal. Abdomen: Visualized upper abdominal solid organs and bowel loops appear normal in the absence of contrast. IMPRESSION: 1. Stable postsurgical changes in the left upper lobe. 2. Mild ground-glass infiltrate in the right lower lobe posterior medially, consistent with pneumonia or pneumonitis. Dictated by: Roscoe Shepherd M.D. on 02/27/2020 at 17:01 Approved by: Roscoe Shepherd M.D. on 02/27/2020 at 17:09
== END ==
PROVIDERS: PCP Physician Assistant Medical; Referring Provider Surgery; Visit Provider Surgery
DX: C34.12 Malignant neoplasm of upper lobe, left bronchus or lung (principal)
CPT/HCPCS: 71250

== ENCOUNTER → 2020-03-30 13:23 | Outpatient (CLI) | payer OTHER, SELFPAY ==
[2020-03-30 15:57] LABS: COVID19 -Nasal RAPID Negative (Negative)
== END ==
PROVIDERS: PCP Physician Assistant Medical; Visit Provider Physical Medicine & Rehabilitation
DX: Z20.822 Contact with and (suspected) exposure to COVID-19 (principal)
CPT/HCPCS: 87635; C9803

== ENCOUNTER 2020-03-31 12:58 | Outpatient (CLI) | payer OTHER, SELFPAY ==
[2020-03-31] VITALS (10 sets, daily range): BP systolic 126–162; BP diastolic 70–84; PULSE 58–67; RESP 12–20; TEMP 36.8; O2SAT 95–99
--- NOTE | 2020-03-31 12:59 | DI.RAD.S_ITS ---
PROCEDURE: PAIN L/S TRANSFORAM INJECT SILVIA COMPARISON: [facility], MR, MR LUMBAR SPINE WO CON, 06/01/2018, 11:41. INDICATIONS: SPONDYLOSIS FINDINGS: 7 intraoperative fluoroscopy images demonstrate needle placement at L5-S1. Note is made of grade 2 anterolisthesis of L5 on S1. IMPRESSION: Fluoroscopy for pain management. Dictated by: Roscoe Shepherd M.D. on 03/31/2020 at 15:07 Approved by: Roscoe Shepherd M.D. on 03/31/2020 at 15:08
[2020-03-31] MEDS: fentaNYL 100 MCG/2 ML INJ 50 MCG IV (13:44)
[2020-03-31] MEDS: IOPAMIDOL 15 ML VIAL 3 ML INJ (13:48)
[2020-03-31] MEDS: BETAMETHASONE 30 MG/5 ML MDV 6 MG INJ (13:49)
[2020-03-31] MEDS: DEXAMETHASONE 10 MG/ML VIAL 20 MG INJ (13:49)
[2020-03-31] MEDS: BUPIVACAINE 0.25% (PF) VIAL 2 ML INJ (13:49)
[2020-03-31] MEDS: MIDAZOLAM 5 MG/5 ML VIAL IV (13:55)
--- NOTE | 2020-03-31 14:04 | PM.PROC.IR.1 ---
Date/Time/Diagnoses Date of procedure: 03/31/20 Time of procedure: 14:04 Pre-procedure diagnosis: 1. FORAMINAL STENOSIS WITH LE SYMPTOMS Post-procedure diagnosis: same Procedure Notes Procedure: 1. FLUOROSCOPICALLY GUIDED CONTRAST CONTROLLED TRANSFORAMINAL EPIDURAL STEROID INJECTION - BILATERAL L5/S1 TFESI Indications: Allan is referred by JOSE Collins for treatment of Foraminal Stenosis with bilateral LE Symptoms Physician: Too Ortega Total Fluoroscopy time (seconds): 15 Total sedation minutes: 14 Complications: none Procedure in detail & Post-procedure care: FINDINGS Foraminal Nerve Root Compression secondary to disc disease and facet hypertrophy DESCRIPTION OF PROCEDURE Following review of allergy and review of potential side effects and complications, including, but not necessarily limited to, infection, allergic reaction, local tissue breakdown, stroke, temporary or permanent nerve injury, paralysis, and possible , the patient indicated that the patient understood and agreed to proceed. An informed consent document was signed by the patient, witnessed by a nurse, and placed in the patient's chart. Additionally, other treatment options including medications, modalities, and physical therapy were reviewed with the patient. After review of previous anaesthesic history and IV conscious sedation the patient was deemed safe to proceed with today?s procedure with IV conscious sedation as ASA class II designation. Safety time-out was performed to confirm patient ID, procedure to be performed and site of procedure. IV sedation was accomplished with a combination of 3mg of Versed and 50mcg of Fentanyl was administered by the RN after DO order, titrated to patient comfort during the course of the procedure while the patient remained responsive to all verbal commands In the prone position following sterile prep and drape of the lumbar region, the right L5/S1 posterior neuroforamen was identified fluoroscopically. The skin was anesthetized via a 25-gauge 1.5-inch needle with 1% lidocaine solution. At this point, a 25-gauge 3.5-inch spinal needle was atraumatically introduced and advanced under fluoroscopic guidance through the posterior right L5/S1 neuroforamen to approximately the anterior aspect of the canal. Depth was confirmed on lateral view. Following negative aspiration, injection of approximately 1.5cc of Isovue 200 under live fluoroscopy in the AP view confirmed excellent flow along the nerve root, into the epidural space without vascular or intrathecal uptake observed Radiological data, including multiple fluoroscopic views of the lumbosacral spine, reveal a spinal needle at the right L5/S1 posterior neuroforamen. Subsequent views show flow of contrast material flowing superiorly and inferiorly along the nerve root confirming epidural flow. Subsequently, a test dose of 1.5cc of 1% lidocaine solution was administered and patient was observed for two minutes for signs or symptoms of complications, including abdominal pain, shortness of breath, bilateral upper or lower extremity weakness, nausea and vomiting, prior to steroid injection. At this point, a total of 3cc or 20mg of dexamethasone and 6mg betamethasone was injected without incident. Attention was then refocused to the left L5/S1 level where the identical procedure was replicated. The procedure tolerated the procedure well without signs or symptoms of complications prior to transfer to the recovery area continued monitoring without incident. The patient was then transferred to the recovery area where they were observed for an appropriate time after the injection. The patient reported a VAS score of 7 prior to the procedure and a post-procedure VAS of 0. POST OP INSTRUCTIONS The patient was provided a Pain Log to continue to record their response to the target-specific procedure prior to follow-up visit with their referring physician. Additionally, specific post-injection care instructions and a contact number to our office were provided if concerns arise regarding possible complications associated with the procedure are suspected.
== END 2020-03-31 14:30 | disposition home or self-care (01) ==
LOC: RAD 12:59
PROVIDERS: PCP Physician Assistant Medical; Referring Provider Physical Medicine & Rehabilitation; Visit Provider Physical Medicine & Rehabilitation
DX: M48.07 Spinal stenosis, lumbosacral region (principal); M51.17 Intervertebral disc disorders with radiculopathy, lumbosacral region
CPT/HCPCS: 64483; 99152; J0702; J1100; J2250; J3010

== ENCOUNTER → 2021-05-03 10:45 | Outpatient (CLI) | payer OTHER, SELFPAY ==
--- NOTE | 2021-05-03 | DI.CT.S_ITS ---
PROCEDURE: CT CHEST WO CON INDICATIONS: Malignant neoplasm of upper lobe, left bronchus TECHNIQUE: Noncontrast 2.0-2.5 mm thick sections acquired from the pulmonary apices to the posterior costophrenic angles. 7 mm thick axial MIP and 5 mm coronal and sagittal reformats were then acquired. A low radiation dose technique was utilized. COMPARISON: [facility], CT, CT CHEST WO CON, 02/27/2020, 14:05. FINDINGS: Image quality: Diagnostic, given the low radiation dose technique. Lungs and pleura: Partial left upper lobectomy. Thickening at the left apex is unchanged since 2019. Right lower lobe calcified granuloma. Minimal atelectasis or scarring in the right lung. Central airways are clear. No pleural effusion. No pneumothorax. Mediastinum: Heart size is prominent. No pericardial effusion. No mediastinal adenopathy by size criteria. Thoracic aorta and central pulmonary arteries are normal in size. Esophagus is normal in caliber. No hiatal hernia. Bones and chest wall: No suspicious bony lesions. No vertebral body compression fractures. No axillary or supraclavicular adenopathy by size criteria. Thyroid gland is unremarkable. Abdomen: Visualized upper abdomen solid organs and bowel loops appear normal in the absence of contrast. IMPRESSION: 1. No recurrent mass. Partial left upper lobe lobectomy. 2. No enlarged lymph nodes. Dictated by: Theron Peralta M.D. on 05/03/2021 at 14:20 Approved by: Theron Peralta M.D. on 05/03/2021 at 14:33
== END ==
PROVIDERS: PCP Physician Assistant Medical; Referring Provider Physician Assistant; Visit Provider Physician Assistant
DX: C34.12 Malignant neoplasm of upper lobe, left bronchus or lung (principal)
CPT/HCPCS: 71250

== ENCOUNTER 2022-04-26 18:55 | Emergency (ER) | payer MEDICARE, OTHER, SELFPAY ==
[2022-04-26] VITALS (8 sets, daily range): BP systolic 111–146; BP diastolic 60–80; PULSE 67–74; RESP 16; TEMP 37.1; O2SAT 95–99; BMI 30.5
--- NOTE | 2022-04-26 19:25 | DI.RAD.S_ITS ---
PROCEDURE: XR ACUTE ABDOMEN SERIES INDICATIONS: constipation TECHNIQUE: One view chest and two views of the abdomen were acquired. COMPARISON: None. FINDINGS: Surgical changes and devices: None. Chest: Lungs are clear. Heart size is normal. No pleural effusions. No pneumoperitoneum. Abdomen: Bowel gas pattern appears within normal limits and demonstrates a mild fecal load. No suspicious calcifications. Bones: No suspicious bony lesions. IMPRESSION: 1. No evidence of bowel obstruction. Dictated by: Allan Ward M.D. on 04/26/2022 at 20:11 Approved by: Allan Ward M.D. on 04/26/2022 at 20:12
--- NOTE | 2022-04-26 19:57 | ED.ABDPAIN ---
HPI - Abdominal Pain General Chief Complaint: Abdominal Pain Stated Complaint: Abd pain, constipation, hx Diverticulitis Time Seen by Provider: 04/26/22 19:25 History of Present Illness HPI narrative: 61-year-old male nonsmoker with history of end-stage renal disease requiring hemodialysis / (full run today) presents with left lower quadrant and lower abdominal pain. He has had no bowel movement for the past 5 days. He states that he noticed some blood in 1 of his most recent bowel movements but states this is quite normal for him and he has been dealing with blood in his stool for many years and has an upcoming appointment with surgery to evaluate banding internal hemorrhoids. He is had no fever or chills and denies nausea, vomiting or diarrhea. He has no new medications and has been attending dialysis as planned. He has been anemic for quite some time and receives regular iron infusions and had previously been taking stool softeners daily but at the request of his it technical support specialist he had started cutting back over the past few weeks. He states he never had trouble with his bowels moving when he was regular with his stool softeners. Related Data Home Medications Medication Instructions Recorded Confirmed fexofenadine 180 mg tablet 180 mg PO QDAY #0 tabs 11/04/15 03/20/20 meclizine 25 mg tablet 25 mg PO PRN PRN Vertigo ##0 11/04/15 03/20/20 multivitamin (Multiple Vitamins 1 tab PO QDAY #0 tabs 11/04/15 03/20/20 tablet) pravastatin 20 mg tablet 20 mg PO BEDTIME ##0 11/04/15 03/20/20 tadalafil 20 mg tablet (Cialis) 20 mg PO PRN PRN Sexual Activity 11/04/15 03/20/20 ##0 tamsulosin 0.4 mg capsule (Flomax) 0.4 mg PO BID ##0 11/04/15 03/20/20 Vitamin C 1 tab PO DAILY 09/19/17 03/20/20 amlodipine 5 mg tablet 5 mg PO DAILY 09/19/17 03/20/20 gemfibrozil 600 mg tablet 600 mg PO BID 09/19/17 03/20/20 hyoscyamine sulfate 0.125 mg tablet 1 tab PO DIRECTED PRN as 08/14/18 02/12/21 directed polyethylene glycol 3350 17 gram 1 packet PO DAILY 09/19/17 03/20/20 oral powder packet (Miralax) propranolol 10 mg tablet 10 mg PO BID 09/19/17 03/20/20 vitamin E 1 cap PO DAILY 09/19/17 03/20/20 amitriptyline 10 mg tablet 30 mg PO BEDTIME 02/19/20 03/20/20 aspirin 81 mg tablet,delayed 81 mg PO DAILY 02/19/20 03/20/20 release (Adult Low Dose Aspirin) carvedilol 12.5 mg tablet 12.5 mg PO BID 02/19/20 03/20/20 cholecalciferol (vitamin D3) 50 50 mcg PO DAILY 02/19/20 03/20/20 mcg (2,000 unit) capsule losartan 50 mg tablet 50 mg PO DAILY 02/19/20 03/20/20 Previous Rx's Medication Instructions Recorded celecoxib 200 mg capsule (Celebrex) 200 mg PO DAILY #30 caps 07/24/20 amoxicillin 875 mg-potassium 1 tab PO BID #20 tabs 04/27/22 clavulanate 125 mg tablet Allergies Allergy/AdvReac Type Severity Reaction Status Date / Time No Known Drug Allergies Allergy Verified 05/04/20 11:11 Review of Systems Review of Systems Narrative: GENERAL: See HPI HEENT: Denies sinus pain, ear pain, sore throat, difficulty swallowing, dizziness. RESPIRATORY: Denies dyspnea, cough, wheezing, hemoptysis, sputum. CARDIOVASCULAR: Denies chest pain, palpitations, orthopnea, edema, GASTROINTESTINAL: See HPI : Denies dysuria, frequency, incontinence, hematuria, urinary retention. MUSCULOSKELETAL: denies weakness, joint pain, or bony pain SKIN: Denies rash, skin lesions, or other NEUROLOGIC: Denies weakness, headache, numbness, change in speech, confusion, seizures, incoordination. PSYCHIATRIC: No concerning psychosocial issues. 12 point review of systems is negative except for those stated above Patient History Medical History (Updated 04/27/22 @ 00:16 by Cuong Ward DO) Degenerative joint disease of foot Facet arthropathy, lumbar Hypertension Lumbar foraminal stenosis Lumbosacral radiculopathy at S1 Renal insufficiency Sensory peripheral neuropathy Spondylolisthesis at L5-S1 level Surgical History H/O left knee surgery History of lung surgery Family History Father Natural with unknown cause Hypertension Heart disease Social History Smoking Status: Never smoker Smoking Status: Never smoker alcohol intake frequency: 0-2 drinks per day Substance Use Type: does not use Exam Narrative Exam Narrative: GENERAL: [61] year old patient appears stated age. Well-developed patient, in mild distress. HEAD: Atraumatic. Normocephalic. EYES: Pupils equal round and reactive. Extraocular motions intact. No scleral icterus. No injection or drainage. ENT: Nose without bleeding, purulent drainage. Throat without erythema, tonsillar hypertrophy or exudate. Airway patent. NECK: Trachea midline. Non tender CARDIOVASCULAR: Regular rate and rhythm without murmurs, gallops, or rubs. RESPIRATORY: Clear to auscultation. Breath sounds equal bilaterally. No wheezes, rales, or rhonchi. GASTROINTESTINAL: Abdomen soft, minimally tender in the lower portions of his abdomen, nondistended. Bowel sounds present in all 4 quadrants EXTREMITIES: No edema or joint tenderness. BACK: Nontender without deformity or crepitance. No flank tenderness. NEURO: AOx3. SKIN: No rash or erythema of visible areas Initial Vital Signs Initial Vital Signs: Vital Signs Temperature 98.8 F 04/26/22 19:04 Pulse Rate 74 04/26/22 19:04 Respiratory Rate 16 04/26/22 19:04 Blood Pressure 111/60 04/26/22 19:04 Pulse Oximetry 98 04/26/22 19:04 Oxygen Delivery Method Room Air 04/26/22 19:04 Course Orders Ordered: ED Orders 04/26/22 19:25 XR acute abdomen series Stat 04/26/22 21:38 CBC Auto Diff [Complete Blood Count AUTO DIFF] Stat CMP [Comprehensive Metabolic Panel] Stat 04/26/22 22:38 CT abdomen pelvis wo con Stat Discontinued Medications Hydrocodone Bitart/Acetaminophen (Hydrocodone/Acet 5/325 Prepack) 1 bottle MISC SEEINSTR ONE Stop: 04/27/22 00:15 Amoxicillin/Clavulanate Potassium (Amoxicillin/Clav 875/125 Mg) 1 tab PO NOW ONE Stop: 04/27/22 00:15 Vital Signs Vital signs: Vital Signs - 8 hr 04/26/22 19:04 04/26/22 21:19 04/26/22 21:30 Temperature 98.8 F Pulse Rate 74 71 Respiratory Rate 16 Blood Pressure 111/60 130/68 Pulse Oximetry 98 97 Oxygen Delivery Method Room Air 04/26/22 21:30 04/26/22 22:00 04/26/22 22:00 Temperature Pulse Rate 71 71 Respiratory Rate Blood Pressure 146/69 H Pulse Oximetry 97 95 Oxygen Delivery Method 04/26/22 22:30 04/26/22 22:30 04/26/22 23:00 Temperature Pulse Rate 74 67 Respiratory Rate Blood Pressure 133/63 Pulse Oximetry 99 97 Oxygen Delivery Method 04/26/22 23:22 04/26/22 23:22 04/26/22 23:30 Temperature Pulse Rate 71 Respiratory Rate Blood Pressure 126/80 131/63 Pulse Oximetry 96 Oxygen Delivery Method 04/26/22 23:30 04/27/22 00:00 04/27/22 00:00 Temperature Pulse Rate 73 69 Respiratory Rate Blood Pressure 135/66 Pulse Oximetry 96 97 Oxygen Delivery Method MDM - Abdominal Pain Lab Data 04/26/22 21:38 04/26/22 21:38 Labs: Lab Results 04/26/22 04/26/22 Range/Units 21:38 21:38 WBC 6.8 (4.5-11.0) X10^3/uL RBC 2.62 L (4.5-5.9) X10^6/uL Hgb 9.1 L (13.5-17.5) g/dL Hct 25.3 L (41-53) % MCV 96.9 (80-100) fL MCH 34.7 H (26-34) PG MCHC 35.8 (30-36) % RDW 15.2 H (11.6-14.8) % Plt Count 206 (150-400) X10^3/uL Neut % (Auto) 71.3 (50-75) % Lymph % (Auto) 16.5 L (25-40) % Sioux % (Auto) 9.7 (3-14) % Eos % (Auto) 1.9 L (2-4) % Baso % (Auto) 0.6 (0-2) % Neut # (Auto) 4800 (9392-6199) /uL Lymph # (Auto) 1100 (9364-4095) /uL Sioux # (Auto) 700 (0-900) /uL Eos # (Auto) 100 (0-450) /uL Baso # (Auto) 0 (0-100) /uL Sodium 132 L (137-145) mmol/L Potassium 4.1 (3.4-5.1) mmol/L Chloride 89 L (98-107) mmol/L Carbon Dioxide 36 H (22-32) mmol/L BUN 22 H (9-20) mg/dL Creatinine 3.30 H (0.66-1.25) mg/dL Estimated GFR 21 L (>60) mL/min BUN/Creatinine Ratio 6.7 (6-22) Glucose 125 H (80-110) mg/dL Calcium 8.9 (8.4-10.2) mg/dL Total Bilirubin 0.6 (0.2-1.3) mg/dL AST 22 (17-59) IU/L ALT 18 (<50) IU/L Alkaline Phosphatase 142 H (38-126) U/L Total Protein 7.5 (6.3-8.2) g/dL Albumin 4.0 (3.5-5.0) g/dL Globulin 3.5 (1.7-4.1) g/dL Albumin/Globulin Ratio 1.1 (1.0-2.8) Imaging Data CT scan - abdomen/pelvis: Radiologist's Impression: Diverticulitis without perforation or abscess, no obstruction MDM Narrative Medical decision making narrative: CC: 61-year-old male with decreased bowel movements and abdominal pain Complicating co-morbidities: Age, hypertension, dialysis Data collected from: Patient Medical records reviewed: Prior notes reviewed in our EMR Differential considered, but not limited to: Bowel obstruction versus diverticulitis versus constipation versus other Exam documented above, pertinent findings include: Abdomen is soft, bowel sounds present. No conjunctival pallor. Heart rate regular rhythm, lungs clear Lab Test results independently reviewed as above. Pertinent findings: No leukocytosis or left shift. Patient is chronically anemic, these numbers are in the normal for him per the patient. Creatinine 3.3, patient receives hemodialysis and went today. Independently reviewed EKG as above Imaging studies independently reviewed: X-ray without obstructive process Discussion: Patient with lower abdominal pain and decreased bowel movements over the past few days has reassuring history and physical exam without any significant abnormal labs. X-ray shows no obstructive process and CT shows diverticulitis without perforation or abscess. Pain is well controlled and patient is tolerating orals. There likely is some element of constipation involved his discomfort as this has built in the days after changing his treatment with stool softeners. Patient is overall doing well and appropriate for discharge as there are no indications hospitalization would be required. Patient given 1st dose of antibiotics and a prepack for pain control, he understands that the opioids given will likely worsen constipation which is likely playing a role in his symptoms. He has been given return precautions and encouraged to follow-up Disposition: see below, along with detailed discharge instructions that have been reviewed with patient as well as indications for ED re-evaluation and additional outpatient follow up Discharge Plan Departure Patient Disposition: Home Clinical Impression: Diverticulitis, Acute constipation Instructions: DI for Diverticulitis Activity Restrictions/Additional Instructions: *You have been diagnosed with [abdominal pain due to diverticulitis and constipation] *What to do: *Please continue to take your regular medications as directed. [x ] New medication prescriptions sent to your pharmacy: [[facility]] *Please follow up with your primary care provider in 2-3 days, call for an appointment. Let them know you were seen in the Emergency Department and that we ask that you be seen in follow up. We will electronically transmit a record of today's note if your PCP is in our system *Please consider a clear liquid diet for the next 24-48 hours and then slowly advance to regular as tolerated. Also, try to avoid alcohol, nicotine, caffeine, spicy, acidic or fatty foods as this may worsen your symptoms *If you do not have a primary care provider please contact the [facility] Resource line at [phone]. They will ask some questions about your medical history and help get you set up with a doctor in the community. *Return to Emergency Department if you should have any new, worsening or concerning symptoms, such as [fever greater than 101 F, shaking chills, worsening pain, persistent vomiting or other bothersome symptoms] Prescriptions: New amoxicillin-pot clavulanate 875-125 mg tablet 1 tab PO BID Qty: 20 0RF No Action tamsulosin [Flomax] 0.4 MG capsule,extended release 24hr 0.4 mg PO BID Qty: 0 fexofenadine 180 MG tablet 180 mg PO QDAY Qty: 0 pravastatin 20 MG tablet 20 mg PO BEDTIME Qty: 0 multivitamin [Multiple Vitamins] 1 EACH tablet 1 tab PO QDAY Qty: 0 meclizine 25 MG tablet 25 mg PO PRN PRN (Reason: Vertigo) Qty: 0 tadalafil [Cialis] 20 MG tablet 20 mg PO PRN PRN (Reason: Sexual Activity) Qty: 0 Patient Comments: did not confirm with patient. celecoxib [Celebrex] 200 mg capsule 200 mg PO DAILY Qty: 30 2RF polyethylene glycol 3350 [Miralax] 17 gram Powder In Packet 1 packet PO DAILY Vitamin C 1 tab PO DAILY vitamin E 1 cap PO DAILY amlodipine 5 mg Tablet 5 mg PO DAILY propranolol 10 mg Tablet 10 mg PO BID gemfibrozil 600 mg Tablet 600 mg PO BID hyoscyamine sulfate 0.125 mg Tablet 1 tab PO DIRECTED PRN (Reason: as directed) cholecalciferol (vitamin D3) 50 mcg (2,000 unit) capsule 50 mcg PO DAILY losartan 50 mg tablet 50 mg PO DAILY carvedilol 12.5 mg tablet 12.5 mg PO BID Rx Instructions: must administer with a meal/food aspirin [Adult Low Dose Aspirin] 81 mg tablet,delayed release (DR/EC) 81 mg PO DAILY amitriptyline 10 mg tablet 30 mg PO BEDTIME Referrals: Irasema Collins PA-C [Primary Care Provider] - Stand Alone Forms: Patient Portal/API
[2022-04-26 21:52] LABS: Add Manual Diff / Slide Review NO; Basophils Absolute Auto 0 /uL (0-100); Basophils Percent Auto 0.6 % (0-2); Eosinophils Absolute Auto 100 /uL (0-450); Eosinophils Percent Auto 1.9 % (2-4); Hematocrit 25.3 % (41-53); Hemoglobin 9.1 g/dL (13.5-17.5); Lymphocytes Absolute Auto 1100 /uL (1100-4500); Lymphocytes Percent Auto 16.5 % (25-40); Mean Corpuscular HGB Conc 35.8 % (30-36); Mean Corpuscular Hemoglobin 34.7 PG (26-34); Mean Corpuscular Volume 96.9 fL (80-100); Monocytes Absolute Auto 700 /uL (0-900); Monocytes Percent Auto 9.7 % (3-14); Neutrophils Absolute Auto 4800 /uL (1500-7000); Neutrophils Percent Auto 71.3 % (50-75); Platelet Count 206 X10^3/uL (150-400); Red Blood Cell Count 2.62 X10^6/uL (4.5-5.9); Red Cell Distribution Width 15.2 % (11.6-14.8); White Blood Cell Count 6.8 X10^3/uL (4.5-11.0)
[2022-04-26 22:10] LABS: Alanine Aminotransferase 18 IU/L (<50); Albumin Globulin Ratio 1.1 (1.0-2.8); Alkaline Phosphatase 142 U/L (38-126); Aspartate Aminotransferase 22 IU/L (17-59); BUN Creatinine Ratio 6.7 (6-22); Bilirubin Total 0.6 mg/dL (0.2-1.3); Blood Urea Nitrogen 22 mg/dL (9-20); Calcium 8.9 mg/dL (8.4-10.2); Carbon Dioxide 36 mmol/L (22-32); Chloride 89 mmol/L (98-107); Estimated Glomerular Filt Rate 21 mL/min (>60); Globulin 3.5 g/dL (1.7-4.1); Glucose 125 mg/dL (80-110); HEMOLYSIS < 15 (0-50); Potassium 4.1 mmol/L (3.4-5.1); Sodium 132 mmol/L (137-145); Total Protein 7.5 g/dL (6.3-8.2)
--- NOTE | 2022-04-26 22:38 | DI.CT.S_ITS ---
PROCEDURE: CT ABDOMEN PELVIS WO CON INDICATIONS: central lower abdominal pain TECHNIQUE: Axial sections were acquired from the lung bases to the pubic symphysis. Coronal and sagittal reformats were performed. For radiation dose reduction, the following was used: automated exposure control, adjustment of mA and/or kV according to patient size. COMPARISON: [facility], CT, CT ABDOMEN PELVIS WO CON, 01/22/2019, 14:24. FINDINGS: Image quality: Excellent. Lung bases: There is mild dependent atelectasis. Heart: Heart is normal in size. ABDOMEN: Liver: Noncontrast evaluation of the liver demonstrates no discrete hepatic mass. Gallbladder: Within normal limits without calcified gallstones. Biliary ducts: No biliary ductal dilatation. Pancreas: Unremarkable. Spleen: Normal in size. Adrenal Glands: No adrenal nodules. Kidneys and Ureters: No hydronephrosis. There is a large exophytic left renal cyst. In addition, there is a hyperdense cyst or mass within the right kidney measuring up to 1.9 cm on series 2, image 50 which appears new compared to the prior study. There is also a hyperdense cyst or mass within the superior pole of the left kidney measuring 1.7 cm on series 2, image 30 which appears increased in size from the prior study. Stomach and Bowel: Stomach and small bowel loops are normal in caliber and wall thickness. The appendix is normal. There is colonic diverticulosis with associated diverticular and segmental colonic wall thickening in the mid sigmoid colon as well as adjacent pericolonic fat stranding and minimal free fluid consistent with acute diverticulitis. No diverticular abscess or macroscopic free air. Peritoneum: No abnormal intraperitoneal fluid. No free air. Ventral Wall: No hernia. Abdominal Nodes: No retroperitoneal or mesenteric adenopathy by size criteria. Vessels: Aorta and inferior vena cava are normal in size. PELVIS: Pelvic Organs: Unremarkable. Bladder: Unremarkable. Pelvic Nodes: No enlarged lymph nodes. Miscellaneous: No inguinal hernias are seen. Bones: There is anterolisthesis at L5-S1 with associated fusion redemonstrated. Visualized osseous structures demonstrate no suspicious focal lesions. IMPRESSION: 1. Acute diverticulitis in the sigmoid colon without evidence of diverticular abscess or macroscopic free air. 2. Bilateral hyperdense renal cysts or renal mass lesions. Recommend nonemergent follow-up evaluation with ultrasound for further evaluation. Dictated by: Allan Ward M.D. on 04/26/2022 at 23:57 Approved by: Allan Ward M.D. on 04/27/2022 at 0:03
[2022-04-27] VITALS: BP 135/66; PULSE 69; O2SAT 97
[2022-04-27 00:20] VITALS: BP 137/65; PULSE 70; O2SAT 98
[2022-04-27] MEDS: AMOXICILLIN/CLAV 875/125 MG 1 TAB PO (00:20)
[2022-04-27] MEDS: HYDROCODONE/ACET 5/325 PREPACK 1 BOTTLE MISC (00:20)
== END 2022-04-27 00:24 | disposition home or self-care (01) ==
PROVIDERS: Emergency Provider Emergency Medicine; PCP Physician Assistant Medical
DX: K57.92 Diverticulitis of intestine, part unspecified, without perforation or abscess without bleeding (principal); K59.00 Constipation, unspecified
CPT/HCPCS: 36415; 74022; 74176; 80053; 85025; 99283; 99284

== ENCOUNTER → 2022-09-19 12:55 | Outpatient (CLI) | payer MEDICARE, OTHER, SELFPAY ==
--- NOTE | 2022-09-19 | DI.CT.S_ITS ---
PROCEDURE: CT CHEST WO CON INDICATIONS: MALIGNANT NEOPLASM UPPER LOBE LEFT LUNG TECHNIQUE: Noncontrast 5 mm thick sections acquired from the pulmonary apices to the posterior costophrenic angles. 1 mm lung window, 5 mm thick coronal and sagittal and 7 mm axial MIP reformats were then acquired. For radiation dose reduction, the following was used: automated exposure control, adjustment of mA and/or kV according to patient size. COMPARISON: [facility], CT, CT CHEST WO CON, 05/03/2021, 10:53. FINDINGS: Image quality: Excellent. Lungs and pleura: Status post partial left upper lobe lobectomy. Redemonstration of left apical thickening, unchanged since 2019. Right lower lobe calcified granuloma. Similar minimal atelectasis/scarring in the right lung. No new or enlarging pulmonary nodule. Central airways are clear. No pleural effusion or pneumothorax. Mediastinum: Heart size is normal. No pericardial effusion. No mediastinal adenopathy by size criteria. Thoracic aorta and central pulmonary arteries are normal in size. Esophagus is normal in caliber. No hiatal hernia. Bones and chest wall: No acute or suspicious bony lesions. No vertebral body compression fractures. No axillary or supraclavicular adenopathy by size criteria. Thyroid gland unremarkable . Abdomen: Visualized upper abdominal solid organs and bowel loops appear normal in the absence of contrast. IMPRESSION: Status post partial left upper lobectomy. No evidence of recurrent disease. No lymphadenopathy. Approved by: Nani Chavira M.D. on 09/19/2022 at 23:19
== END ==
PROVIDERS: PCP Physician Assistant Medical; Referring Provider Surgery; Visit Provider Surgery
DX: C34.12 Malignant neoplasm of upper lobe, left bronchus or lung (principal)
CPT/HCPCS: 71250

== ENCOUNTER → 2022-12-27 09:09 | Outpatient (CLI) | payer MEDICARE, OTHER, SELFPAY ==
--- NOTE | 2022-12-27 | DI.ECHO.S_ITS ---
[facility]---------+ [facility] +---------+ : : [address] [place] : : : : [id number] : : : : Phone: [phone] Echocardiogram Report + + :Name: ECTOR PARIKH Study Date: 12/27/2022 Height: 72 in : :[facility] ReadingLocation: Weight: 221 lb : : Gender: Male BSA: 2.2 m2 : :: 1960 Age: 62 yrs BP: 145/67 mmHg: :Reason For Study: SHORTNESS OF BREATH : :Ordering Physician: YI, : :MINI Performed By: Cindi Gonzalez : :Referring: MINI RICHMOND : + + Interpretation Summary The left ventricle is mildly dilated. The ejection fraction is estimated to be 50-55%. Diastolic function could not be accurately assessed due to unobtainable data. The left atrium is mildly dilated. The right ventricle is normal in size and function. There is trace aortic regurgitation. Pulmonary artery pressures cannot be estimated because of the lack of a measurable TR jet velocity but the IVC suggests a CVP of around 3 mmHg. Compared to the prior study dated 04/08/2019, left ventricular diastolic internal dimension has increased and the ejection fraction decreased slightly. Procedure: A two-dimensional transthoracic echocardiogram with color flow and Doppler was performed. The study quality was technically adequate. Comparison is made with the echocardiogram of 04/08/2019. The patient was in sinus bradycardia with heart rates between 57-65 bpm during the exam. Left Ventricle: The left ventricle is mildly dilated. There is normal left ventricular wall thickness. The ejection fraction is estimated to be 50-55%. Diastolic function could not be accurately assessed due to unobtainable data. Right Ventricle: The right ventricle is normal in size and function. Atria: The left atrium is mildly dilated. Right atrial size is normal. There is no Doppler evidence for an interatrial shunt. Mitral Valve: The mitral valve is normal in structure and function. There is trace mitral regurgitation. Aortic Valve: The aortic valve is trileaflet. The aortic valve opens well. There is no aortic valve stenosis. There is trace aortic regurgitation. Tricuspid Valve: The tricuspid valve is normal in structure and function. There is trace tricuspid regurgitation. Pulmonary artery pressures cannot be estimated because of the lack of a measurable TR jet velocity but the IVC suggests a CVP of around 3 mmHg. Pulmonic Valve: The pulmonic valve leaflets are thin and pliable; valve motion is normal. There is trace pulmonic regurgitation. Great Vessels: The aortic root is borderline dilated. The dimensions of the ascending aorta are normal. The IVC is of normal diameter and collapses greater than 50% with a sniff. This suggests a low right atrial pressure of 3 mm Hg. Pericardium/ Pleura There is no pericardial effusion. There is no pleural effusion. MMode/2D Measurements & Calculations LVIDd: 6.3 cm LVOT diam: 2.5 cm LVIDs: 4.8 cm Ao root diam: 4.0 cm FS: 25.0 % asc Aorta Diam: 3.7 cm EPSS: 0.89 cm Ao Arch Diam (Prox Trans): 3.6 cm IVSd: 0.87 cm LVPWd: 1.0 cm LV norman. diameter/BSA (cm/m^2): 2.9 LV sys. diameter/BSA (cm/m^2): 2.1 LA A2 area: 25.6 cm2 RA long axis: 5.1 cm LA A4 area: 23.0 cm2 RA area: 16.1 cm2 LA length (vol): 5.5 cm RA vol: 43.4 ml LA vol: 90.3 ml RA : 19.5 ml/m2 LA vol index: 40.6 ml/m2 IVC diam: 1.9 cm RVD1 (basal): 3.8 cm TAPSE: 1.6 cm Doppler Measurements & Calculations Ao V2 max: 114.7 cm/sec LVOT Max Sivakumar: 75.9 cm/sec Ao V2 mean: 85.1 cm/sec LV V1 max P.3 mmHg Ao max P.3 mmHg LV V1 VTI: 19.7 cm Ao mean P.1 mmHg SHEKHAR(I,D): 3.3 cm2 Ao V2 VTI: 30.4 cm SHEKHAR(V,D): 3.3 cm2 sev ratio: 0.65 SHEKHAR indexed to BSA (cm^2/m^2): 1.5 MV E max sivakumar: 56.1 cm/sec PA V2 max: 84.7 cm/sec MV A max sivakumar: 61.2 cm/sec PA V2 mean: 60.3 cm/sec MV E/A: 0.92 PA mean P.6 mmHg Med Peak E' Sivakumar: 5.4 cm/sec PA pr(Accel): 0.22 mmHg E/E' med: 10.3 Lat Peak E' Sivakumar: 9.9 cm/sec E/E' lat: 5.7 E/e' average: 8.0 MV dec time: 0.[address] [facility] [facility] 99.2 ml Reading Physician:02:46 PM
--- NOTE | 2022-12-27 | DI.NM.S_ITS ---
PROCEDURE: NM LILLIANA PERF SPECT R&S PHARM Rest and pharmacological stress myocardial perfusion SPECT with gated imaging and ejection fraction RADIOPHARMACEUTICAL: 12.3 mCi Tc-99m tetrafosmin IV at rest and 25.2 mCi Tc-99m tetrafosmin IV at peak effect of pharmacological stress. [id number] was performed. INDICATIONS: Shortness of breath TECHNIQUE: Radiopharmaceutical was injected at peak stress test, and also at rest. SPECT images were obtained. SPECT myocardial perfusion images were displayed in short axis, horizontal long axis, and vertical long axis views. Gated images were reviewed using Mak[employer] software. COMPARISON: None. CARDIAC STRESS: A pharmacologic stress test was performed under the supervision of an attending staff, using an infusion of lexiscan 0.4mg IV X1. Hemodynamic data: There is normal blood pressure and heart rate response to pharmacologic stress. Symptoms: The patient denied anginal chest pain. Aminophylline: none EKG: No diagnostic changes of ischemia; no ectopy. FINDINGS: Raw data: There is good myocardial uptake of radiotracer. No significant motion artifacts. Okom-br-vvnnu ratio is 0.32 (normal is less than 0.38 for tetrafosmin tracer). Left ventricle function: Gated images demonstrate normal left ventricular wall thickening. No segmental wall motion abnormalities. No transient ischemic dilation; TID is 0.96 (normal less than 1.3). Left ventricle resting end diastolic volume is 204 mL. Left ventricle stress ejection fraction is 69%; normal range is above 45%. Myocardial perfusion: There is normal distribution of activity in the right and left ventricular myocardium. No fixed or reversible perfusion defects. IMPRESSION: Low risk, normal pharmaceutical nuclear stress test 1) No perfusion evidence of ischemia or infarction. 2) Enlarged left ventricle (resting end diastolic volume 204cc) with normal wall motion and normal systolic function (EF 69% post stress). 3) No ST changes during lexiscan or recovery. 4) No angina during the study. 5) No prior nuclear stress test available for comparison. Dictated by: Toby Montalvo MD on 12/27/2022 at 16:53 Approved by: oTby Montalvo MD on 12/27/2022 at 16:56
== END ==
PROVIDERS: PCP Physician Assistant Medical; Referring Provider Internal Medicine Cardiovascular Disease; Visit Provider Internal Medicine Cardiovascular Disease
DX: Z01.818 Encounter for other preprocedural examination (principal); R06.02 Shortness of breath; I12.0 Hypertensive chronic kidney disease with stage 5 chronic kidney disease or end stage renal disease; E11.22 Type 2 diabetes mellitus with diabetic chronic kidney disease; N18.6 End stage renal disease; Z99.2 Dependence on renal dialysis; Z79.84 Long term (current) use of oral hypoglycemic drugs
CPT/HCPCS: 78452; 93017; 93306; A9502; J2785

== ENCOUNTER 2023-02-18 17:43 | Emergency (ER) | payer MEDICARE, OTHER, SELFPAY ==
[2023-02-18 17:55] VITALS: BP 172/77; PULSE 70; RESP 18; TEMP 36.2; O2SAT 97; BMI 29.9
--- NOTE | 2023-02-18 19:19 | DI.CT.S_ITS ---
PROCEDURE: CT FACIAL BONES WO CON INDICATIONS: fall on face TECHNIQUE: Noncontrast 2.5 mm thick axial images acquired from the mandible through the frontal sinuses, with coronal and sagittal reformatting. For radiation dose reduction, the following was used: automated exposure control, adjustment of mA and/or kV according to patient size. COMPARISON: None. FINDINGS: Image quality: Excellent. Bones and teeth: Orbital salvador are intact. Sinus salvador show no fracture or deformity. Nasal bones and septum are intact. Visualized portions of the mandible demonstrate no fractures or subluxation. Zygomatic arches are intact. Pterygoid plates are intact. Visualized portions of the skull base and auditory canals are intact. Sinuses: Very mild mucosal thickening in left maxillary sinus is seen. The rest of the paranasal sinuses are aerated, without fluid levels, mucosal thickening, or mucoceles. Mastoid air cells are aerated. Soft tissues: Marked left periorbital soft tissue swelling and internal hyperdensity is seen. No enlarged lymph nodes. No soft tissue lacerations or debris. Vascular: Visualized vascular structures appear normal in the absence of contrast. Bony vascular foramina and canals are intact. IMPRESSION: 1. Marked left periorbital hematoma and swelling. Bilateral orbital salvador are intact. Bilateral orbital globes are intact. 2. No acute facial bone or nasal bone fracture. Nasal septum is midline. 3. Very mild mucosal thickening in left maxillary sinus. Rest of bilateral paranasal sinuses are well aerated. Bilateral mastoids are well aerated. Dictated by: Wagner Soni M.D. on 02/18/2023 at 19:54 Approved by: Wagner Soni M.D. on 02/18/2023 at 19:56
--- NOTE | 2023-02-18 19:19 | DI.CT.S_ITS ---
PROCEDURE: CT CERVICAL SPINE WO CON INDICATIONS: fall on face TECHNIQUE: Noncontrast 3 mm thick sections acquired from the skull base to the T4 level. Sagittal and coronal reformats were then constructed. For radiation dose reduction, the following was used: automated exposure control, adjustment of mA and/or kV according to patient size. COMPARISON: None. FINDINGS: Image quality: Excellent. Bones: No fractures or dislocations. Loss of disc height and degenerative endplate changes throughout cervical spine is seen. No significant central canal stenosis or neural foraminal narrowing is noted. Visualized superior ribs are intact. Soft tissues: Prevertebral soft tissues are normal in thickness. No paravertebral hematomas. No apical pneumothoraces. IMPRESSION: 1. No acute cervical spine fracture or dislocation. 2. Mild degenerative disc disease throughout cervical spine. Dictated by: Wagner Soni M.D. on 02/18/2023 at 19:56 Approved by: Wagner Soni M.D. on 02/18/2023 at 19:57
--- NOTE | 2023-02-18 19:19 | DI.CT.S_ITS ---
PROCEDURE: CT HEAD/BRAIN W CON INDICATIONS: fall on face TECHNIQUE: 4.5 mm thick angled axial sections acquired from the foramen magnum to the vertex after the administration of intravenous contrast, with coronal and sagittal reformats. For radiation dose reduction, the following was used: automated exposure control, adjustment of mA and/or kV according to patient size. COMPARISON: None. FINDINGS: Image quality: Excellent. CSF Spaces: Basal cisterns are patent. No extra-axial fluid collections. Ventricles are normal in size and shape. Brain: No midline shift. No intracranial bleeds or masses. No abnormal intracranial enhancement. Devries-white interface appears normal. Skull and face: Significant left periorbital edema and swelling is seen. No acute skull fracture. Sinuses: Visualized sinuses and mastoids are clear. IMPRESSION: 1. No CT evidence of acute intracranial abnormalities. 2. No acute skull fracture. Significant left periorbital swelling and hematoma. Bilateral orbital salvador are grossly intact. Please correlate with CT facial bone findings. Dictated by: Wagner Soni M.D. on 02/18/2023 at 19:53 Approved by: Wagner Soni M.D. on 02/18/2023 at 19:54
--- NOTE | 2023-02-18 19:53 | ED.FALL ---
HPI - Fall General Chief Complaint: Fall Stated Complaint: fell on face Time Seen by Provider: 02/18/23 19:16 Source: patient Mode of arrival: Family Vehicle History of Present Illness HPI Narrative: Patient is a 62-year-old male history of chronic kidney disease on dialysis, hypertension he does take aspirin, presenting today after mechanical fall. He reports that he was chasing the dog around the kitchen when slipped and fell landing on his right side. He did not lose consciousness. He does have significant right eye hematoma. He is able to open his eye no double vision or blurry vision he wears glasses. No neck pain no nausea or vomiting. Related Data Home Medications Medication Instructions Recorded Confirmed fexofenadine 180 mg tablet 180 mg PO QDAY #0 tabs 11/04/15 01/03/23 meclizine 25 mg tablet 25 mg PO PRN PRN Vertigo ##0 11/04/15 01/03/23 multivitamin (Multiple Vitamins 1 tab PO QDAY #0 tabs 11/04/15 01/03/23 tablet) pravastatin 20 mg tablet 20 mg PO BEDTIME ##0 11/04/15 01/03/23 tadalafil 20 mg tablet (Cialis) 20 mg PO PRN PRN Sexual Activity 11/04/15 01/03/23 ##0 tamsulosin 0.4 mg capsule (Flomax) 0.4 mg PO BID ##0 11/04/15 01/03/23 Vitamin C 1 tab PO DAILY 09/19/17 01/03/23 amlodipine 5 mg tablet 5 mg PO DAILY 09/19/17 01/03/23 gemfibrozil 600 mg tablet 600 mg PO BID 09/19/17 01/03/23 hyoscyamine sulfate 0.125 mg tablet 1 tab PO DIRECTED PRN as 09/19/17 01/03/23 directed polyethylene glycol 3350 17 gram 1 packet PO DAILY 09/19/17 01/03/23 oral powder packet (Miralax) propranolol 10 mg tablet 10 mg PO BID 09/19/17 01/03/23 vitamin E 1 cap PO DAILY 09/19/17 01/03/23 amitriptyline 10 mg tablet 30 mg PO BEDTIME 02/19/20 01/03/23 aspirin 81 mg tablet,delayed 81 mg PO DAILY 02/19/20 01/03/23 release (Adult Low Dose Aspirin) carvedilol 12.5 mg tablet 12.5 mg PO BID 02/19/20 01/03/23 cholecalciferol (vitamin D3) 50 50 mcg PO DAILY 02/19/20 01/03/23 mcg (2,000 unit) capsule losartan 50 mg tablet 50 mg PO DAILY 02/19/20 01/03/23 Previous Rx's Medication Instructions Recorded amoxicillin 875 mg-potassium 1 tab PO BID #20 tabs 04/27/22 clavulanate 125 mg tablet albuterol sulfate 90 mcg/actuation 2 puff inhalation Q8-12H PRN 01/03/23 aerosol inhaler shortness of breath or wheezing #6.7 grams Allergies Allergy/AdvReac Type Severity Reaction Status Date / Time No Known Drug Allergies Allergy Verified 02/18/23 18:03 Patient History Medical History Lumbar foraminal stenosis Spondylolisthesis at L5-S1 level Facet arthropathy, lumbar Degenerative joint disease of foot Lumbosacral radiculopathy at S1 Sensory peripheral neuropathy Hypertension Renal insufficiency Surgical History History of lung surgery H/O left knee surgery Family History Father Natural with unknown cause Hypertension Heart disease Social History Smoking Status: Never smoker Smoking Status: Never smoker alcohol intake frequency: 0-2 drinks per day Substance Use Type: does not use Exam Initial Vital Signs Initial Vital Signs: Vital Signs Temperature 97.1 F L 02/18/23 17:55 Pulse Rate 70 02/18/23 17:55 Respiratory Rate 18 02/18/23 17:55 Blood Pressure 172/77 H 02/18/23 17:55 Pulse Oximetry 97 02/18/23 17:55 Oxygen Delivery Method Room Air 02/18/23 17:55 GENERAL: Well-appearing, well-nourished and in no acute distress. HEENT: Head atraumatic, left eye lid hematoma extraocular movements intact pupils equal and round no evidence of eye trauma no sign of entrapment, no proptosis, and NECK: No vertebral tenderness no step-off CARDIOVASCULAR: Regular rate and rhythm without murmurs, rubs or gallops. RESPIRATORY: Breath sounds equal bilaterally, no wheezes rales or rhonchi. ABDOMEN: Soft, nontender. Normoactive bowel sounds all 4 quadrants. No guarding or rebound. EXTREMITIES: Normal range of motion, no clubbing or edema. Neurovascularly intact fistula left arm good thrill NEUROLOGICAL: Alert and oriented x4.Normal gait and speech. Sprinkling System Irrigator strength equal bilaterally SKIN: Warm, dry, no laceration, no petechiae, no rashes or lesions. Course Orders Ordered: ED Orders 02/18/23 19:19 CT cervical spine wo con Stat CT facial bones wo con Stat CT head/brain w con Stat Vital Signs Vital signs: Vital Signs - 8 hr 02/18/23 17:55 02/18/23 21:08 Temperature 97.1 F L 98.1 F Pulse Rate 70 68 Respiratory Rate 18 16 Blood Pressure 172/77 H 143/67 H Pulse Oximetry 97 98 Oxygen Delivery Method Room Air Room Air MDM - Fall Imaging Data CT scan - head: Radiologist's Impression: PROCEDURE: CT HEAD/BRAIN W CON INDICATIONS: fall on face TECHNIQUE: 4.5 mm thick angled axial sections acquired from the foramen magnum to the vertex after the administration of intravenous contrast, with coronal and sagittal reformats. For radiation dose reduction, the following was used: automated exposure control, adjustment of mA and/or kV according to patient size. COMPARISON: None. FINDINGS: Image quality: Excellent. CSF Spaces: Basal cisterns are patent. No extra-axial fluid collections. Ventricles are normal in size and shape. Brain: No midline shift. No intracranial bleeds or masses. No abnormal intracranial enhancement. Devries-white interface appears normal. Skull and face: Significant left periorbital edema and swelling is seen. No acute skull fracture. Sinuses: Visualized sinuses and mastoids are clear. IMPRESSION: 1. No CT evidence of acute intracranial abnormalities. 2. No acute skull fracture. Significant left periorbital swelling and hematoma. Bilateral orbital salvador are grossly intact. Please correlate with CT facial bone findings. Dictated by: Wagner Soni M.D. on 02/18/2023 at 19:53 CT - cervical spine: Radiologist's Impression: PROCEDURE: CT CERVICAL SPINE WO CON INDICATIONS: fall on face TECHNIQUE: Noncontrast 3 mm thick sections acquired from the skull base to the T4 level. Sagittal and coronal reformats were then constructed. For radiation dose reduction, the following was used: automated exposure control, adjustment of mA and/or kV according to patient size. COMPARISON: None. FINDINGS: Image quality: Excellent. Bones: No fractures or dislocations. Loss of disc height and degenerative endplate changes throughout cervical spine is seen. No significant central canal stenosis or neural foraminal narrowing is noted. Visualized superior ribs are intact. Soft tissues: Prevertebral soft tissues are normal in thickness. No paravertebral hematomas. No apical pneumothoraces. IMPRESSION: 1. No acute cervical spine fracture or dislocation. 2. Mild degenerative disc disease throughout cervical spine. Dictated by: Wagner Soni M.D. on 02/18/2023 at 19:56 ct facial: Radiologist's Impression: PROCEDURE: CT FACIAL BONES WO CON INDICATIONS: fall on face TECHNIQUE: Noncontrast 2.5 mm thick axial images acquired from the mandible through the frontal sinuses, with coronal and sagittal reformatting. For radiation dose reduction, the following was used: automated exposure control, adjustment of mA and/or kV according to patient size. COMPARISON: None. FINDINGS: Image quality: Excellent. Bones and teeth: Orbital salvador are intact. Sinus salvador show no fracture or deformity. Nasal bones and septum are intact. Visualized portions of the mandible demonstrate no fractures or subluxation. Zygomatic arches are intact. Pterygoid plates are intact. Visualized portions of the skull base and auditory canals are intact. Sinuses: Very mild mucosal thickening in left maxillary sinus is seen. The rest of the paranasal sinuses are aerated, without fluid levels, mucosal thickening, or mucoceles. Mastoid air cells are aerated. Soft tissues: Marked left periorbital soft tissue swelling and internal hyperdensity is seen. No enlarged lymph nodes. No soft tissue lacerations or debris. Vascular: Visualized vascular structures appear normal in the absence of contrast. Bony vascular foramina and canals are intact. IMPRESSION: 1. Marked left periorbital hematoma and swelling. Bilateral orbital salvador are intact. Bilateral orbital globes are intact. 2. No acute facial bone or nasal bone fracture. Nasal septum is midline. 3. Very mild mucosal thickening in left maxillary sinus. Rest of bilateral paranasal sinuses are well aerated. Bilateral mastoids are well aerated. Dictated by: Wagner Soni M.D. on 02/18/2023 at 19:54 MDM Narrative Medical decision making narrative: Patient 62-year-old male history of chronic kidney disease on dialysis hypertension presents today after mechanical fall. He is significant left eye hematoma. No evidence of globe rupture, retrobulbar hematoma, blowout fracture or specific eye injury. Imaging has been reviewed CT head cervical spine and facial bones no evidence of fracture. Discharge Plan Departure Patient Disposition: Home Clinical Impression: Periorbital hematoma of left eye Instructions: Eye Contusion Activity Restrictions/Additional Instructions: *You have been diagnosed with left eye hematoma *What to do: At this time apply ice. Swelling get worse before it gets better. Expect swelling to be worse tomorrow may need to sleep elevated. *Continue to take medications as directed Tylenol 650 mg every 6 hours if needed for [id number] pain *Follow up with your primary care provider in 2-3 days or call [phone] *Return to ER if you should have increasing pain swelling visual changes persistent vomiting or any new, worsening or concerning symptoms Prescriptions: No Action tamsulosin [Flomax] 0.4 MG capsule,extended release 24hr 0.4 mg PO BID Qty: 0 fexofenadine 180 MG tablet 180 mg PO QDAY Qty: 0 pravastatin 20 MG tablet 20 mg PO BEDTIME Qty: 0 multivitamin [Multiple Vitamins] 1 EACH tablet 1 tab PO QDAY Qty: 0 meclizine 25 MG tablet 25 mg PO PRN PRN (Reason: Vertigo) Qty: 0 tadalafil [Cialis] 20 MG tablet 20 mg PO PRN PRN (Reason: Sexual Activity) Qty: 0 Patient Comments: did not confirm with patient. evette polyethylene glycol 3350 [Miralax] 17 gram Powder In Packet 1 packet PO DAILY Vitamin C 1 tab PO DAILY vitamin E 1 cap PO DAILY amlodipine 5 mg Tablet 5 mg PO DAILY propranolol 10 mg Tablet 10 mg PO BID gemfibrozil 600 mg Tablet 600 mg PO BID hyoscyamine sulfate 0.125 mg Tablet 1 tab PO DIRECTED PRN (Reason: as directed) amoxicillin-pot clavulanate 875-125 mg tablet 1 tab PO BID Qty: 20 0RF cholecalciferol (vitamin D3) 50 mcg (2,000 unit) capsule 50 mcg PO DAILY losartan 50 mg tablet 50 mg PO DAILY carvedilol 12.5 mg tablet 12.5 mg PO BID Rx Instructions: must administer with a meal/food aspirin [Adult Low Dose Aspirin] 81 mg tablet,delayed release (DR/EC) 81 mg PO DAILY amitriptyline 10 mg tablet 30 mg PO BEDTIME albuterol sulfate 90 mcg/actuation HFA aerosol inhaler 2 puff inhalation Q8-12H PRN (Reason: shortness of breath or wheezing) Qty: 6.7 5RF Referrals: Irasema Collins PA-C [Primary Care Provider] - Stand Alone Forms: Patient Portal/API
[2023-02-18 21:08] VITALS: BP 143/67; PULSE 68; RESP 16; TEMP 36.7; O2SAT 98
== END 2023-02-18 21:09 | disposition home or self-care (01) ==
PROVIDERS: Emergency Provider Emergency Medicine; PCP Physician Assistant Medical
DX: S00.12XA Contusion of left eyelid and periocular area, initial encounter (principal); W01.0XXA Fall on same level from slipping, tripping and stumbling without subsequent striking against object, initial encounter
CPT/HCPCS: 70460; 70486; 72125; 99281; 99284

== ENCOUNTER 2023-08-24 15:52 | Emergency (ER) | payer MEDICARE, OTHER, SELFPAY ==
[2023-08-24] VITALS (8 sets, daily range): BP systolic 169–199; BP diastolic 79–88; PULSE 80–85; RESP 17–35; TEMP 36.5; O2SAT 94–97; BMI 30.5
--- NOTE | 2023-08-24 16:12 | DI.RAD.S_ITS ---
PROCEDURE: XR CHEST 1V INDICATIONS: Shortness of breath TECHNIQUE: One view of the chest was acquired. COMPARISON: [facility], CR, XR CHEST 1V, 09/19/2017, 11:14. FINDINGS: Surgical changes and devices: None. Lungs and pleura: Perihilar opacities. Mediastinum: Mediastinal contours appear normal. Heart size is cardia. Bones and chest wall: No suspicious bony lesions. Overlying soft tissues appear unremarkable. IMPRESSION: Perihilar opacities, concerning for multifocal pneumonia, aspiration less likely pulmonary edema. Dictated by: Tom Suarez M.D. on 08/24/2023 at 16:14 Approved by: Tom Suarez M.D. on 08/24/2023 at 16:15
--- NOTE | 2023-08-24 17:03 | EKG_ITS ---
[address] [address] Test Date: 2023-08-24 Pat Name: Allan Bruno Department: [facility] Room: Gender: Male [employer]: YULISSA : 1960 Requested By: Order Number: [id number] Reading MD: Donte Gallegos MD Measurements Intervals [place] Rate: 81 P: -2 WA: 204 QRS: -26 QRSD: 116 T: 9 QT: 408 QTc: 473 Interpretive Statements Normal sinus rhythm Left ventricular hypertrophy with QRS widening ( R in aVL , Frank product ) Electronically Signed On 08-25-2023 8:04:53 PDT by Donte Gallegos MD
[2023-08-24 17:31] LABS: Add Manual Diff / Slide Review NO; Basophils Absolute Auto 0 /uL (0-100); Basophils Percent Auto 0.4 % (0-2); Eosinophils Absolute Auto 100 /uL (0-450); Eosinophils Percent Auto 1.6 % (2-4); Hematocrit 25.2 % (41-53); Hemoglobin 8.7 g/dL (13.5-17.5); Lymphocytes Absolute Auto 700 /uL (1100-4500); Lymphocytes Percent Auto 10.4 % (25-40); Mean Corpuscular HGB Conc 34.5 % (30-36); Mean Corpuscular Hemoglobin 34.2 PG (26-34); Monocytes Absolute Auto 700 /uL (0-900); Monocytes Percent Auto 9.8 % (3-14); Neutrophils Absolute Auto 5400 /uL (1500-7000); Neutrophils Percent Auto 77.8 % (50-75); Platelet Count 172 X10^3/uL (150-400); Red Blood Cell Count 2.55 X10^6/uL (4.5-5.9); Red Cell Distribution Width 19.4 % (11.6-14.8); White Blood Cell Count 6.9 X10^3/uL (4.5-11.0)
--- NOTE | 2023-08-24 17:31 | ED_ITS ---
HPI - General Adult <Chan Almaraz DO - Last Filed: 08/25/23 07:04> General Chief complaint: Abdominal Pain Stated complaint: Diverticulitis flare up Time Seen by Provider: 08/24/23 16:36 Source: patient Mode of arrival: Ambulatory History of Present Illness HPI narrative: Patient is a 63-year-old male. End-stage renal disease on dialysis. Has had a right-sided nephrectomy. Was supposed to go to dialysis today but did not go because he was having abdominal pain. Is here for evaluation approximately 2 days of abdominal pain. Has had some diarrhea over the past couple days. Nonbloody. No fevers. No change in urination. He states this feels somewhat like his prior episodes of diverticulitis. He is also here because he has been having some shortness of breath. No fevers. No cough. Was started on a medication by his primary provider however he thinks that medicine maybe making things worse. No chest pain. Related Data Home Medications Medication Instructions Recorded Confirmed fexofenadine 180 mg tablet 180 mg PO QDAY #0 tabs 11/04/15 03/09/23 meclizine 25 mg tablet 25 mg PO PRN PRN Vertigo ##0 11/04/15 03/09/23 multivitamin (Multiple Vitamins 1 tab PO QDAY #0 tabs 11/04/15 03/09/23 tablet) pravastatin 20 mg tablet 20 mg PO BEDTIME ##0 11/04/15 03/09/23 tadalafil 20 mg tablet (Cialis) 20 mg PO PRN PRN Sexual Activity 11/04/15 03/09/23 ##0 tamsulosin 0.4 mg capsule (Flomax) 0.4 mg PO BID ##0 11/04/15 03/09/23 Vitamin C 1 tab PO DAILY 09/19/17 03/09/23 amlodipine 5 mg tablet 5 mg PO DAILY 09/19/17 03/09/23 gemfibrozil 600 mg tablet 600 mg PO BID 09/19/17 03/09/23 hyoscyamine sulfate 0.125 mg tablet 1 tab PO DIRECTED PRN as 09/19/17 03/09/23 directed polyethylene glycol 3350 17 gram 1 packet PO DAILY 09/19/17 03/09/23 oral powder packet (Miralax) propranolol 10 mg tablet 10 mg PO BID 09/19/17 03/09/23 vitamin E 1 cap PO DAILY 09/19/17 03/09/23 amitriptyline 10 mg tablet 30 mg PO BEDTIME 02/19/20 03/09/23 aspirin 81 mg tablet,delayed 81 mg PO DAILY 02/19/20 03/09/23 release (Adult Low Dose Aspirin) carvedilol 12.5 mg tablet 12.5 mg PO BID 02/19/20 03/09/23 cholecalciferol (vitamin D3) 50 50 mcg PO DAILY 02/19/20 03/09/23 mcg (2,000 unit) capsule losartan 50 mg tablet 50 mg PO DAILY 02/19/20 03/09/23 Previous Rx's Medication Instructions Recorded albuterol sulfate 90 mcg/actuation 2 puff inhalation Q8-12H PRN 01/03/23 aerosol inhaler shortness of breath or wheezing #6.7 grams amoxicillin 875 mg-potassium 1 tab PO Q12H #20 tabs 08/25/23 clavulanate 125 mg tablet Allergies Allergy/AdvReac Type Severity Reaction Status Date / Time No Known Drug Allergies Allergy Verified 03/09/23 09:59 Review of Systems <Chan Almaraz DO - Last Filed: 08/25/23 07:04> Review of Systems ROS Unobtainable: All systems reviewed & are unremarkable except as noted in HPI and below Patient History <Chan Almaraz DO - Last Filed: 08/25/23 07:04> Medical History Lumbar foraminal stenosis Spondylolisthesis at L5-S1 level Facet arthropathy, lumbar Degenerative joint disease of foot Lumbosacral radiculopathy at S1 Sensory peripheral neuropathy Hypertension Renal insufficiency Surgical History History of lung surgery H/O left knee surgery Family History Father Natural with unknown cause Hypertension Heart disease Social History Smoking Status: Never smoker Smoking Status: Never smoker alcohol intake frequency: other Substance Use Type: does not use Exam <Chan Almaraz DO - Last Filed: 08/25/23 07:04> Initial Vital Signs Initial Vital Signs: Vital Signs Temperature 97.7 F 08/24/23 16:00 Pulse Rate 80 08/24/23 16:00 Respiratory Rate 22 08/24/23 16:00 Blood Pressure 175/82 H 08/24/23 16:00 Pulse Oximetry 97 08/24/23 16:00 Oxygen Delivery Method Room Air 08/24/23 16:00 Const General: cooperative, comfortable and No ill appearing HENMT Head: normal to inspection and normocephalic Resp Effort & Inspection: normal respiratory effort Auscultation: clear to auscultation bilaterally Cardio Rate: regular rate Rhythm: regular rhythm GI Inspection: normal to inspection and distended Palpation: soft, guarding and No tender Skin General: no rashes or lesions noted Neuro General: patient alert, patient awake and moves all extremities Extrem General: capillary refill normal <Juju Blanco MD - Last Filed: 08/25/23 00:46> Initial Vital Signs Initial Vital Signs: Vital Signs Temperature 97.7 F 08/24/23 16:00 Pulse Rate 80 08/24/23 16:00 Respiratory Rate 22 08/24/23 16:00 Blood Pressure 175/82 H 08/24/23 16:00 Pulse Oximetry 97 08/24/23 16:00 Oxygen Delivery Method Room Air 08/24/23 16:00 Course <Chan Almaraz DO - Last Filed: 08/25/23 07:04> Orders Ordered: ED Orders 08/24/23 23:24 Potassium Stat Discontinued Medications Oxycodone HCl (Oxycodone Ir 5 Mg Tablet) 5 mg PO NOW ONE Stop: 08/24/23 20:20 Last Admin: 08/24/23 20:24 Dose: 5 mg Documented By: KARY Sodium Polystyrene Sulfonate (Sodium Polystyrene Sulfon/Sorb 15 Gm/60 Ml Cup) 30 gm PO NOW ONE Stop: 08/24/23 18:17 Last Admin: 08/24/23 18:51 Dose: 30 gm Documented By: RLS Sodium Polystyrene Sulfonate (Sodium Polystyrene Sulfon/Sorb 15 Gm/60 Ml Cup) 30 gm PO NOW ONE Stop: 08/25/23 00:05 Last Admin: 08/25/23 01:59 Dose: Not Given Documented By: KD Vital Signs Vital signs: Vital Signs - 8 hr 08/25/23 00:24 Blood Pressure 172/88 H <Juju Blanco MD - Last Filed: 08/25/23 00:46> Orders Ordered: ED Orders 08/24/23 23:24 Potassium Stat Discontinued Medications Oxycodone HCl (Oxycodone Ir 5 Mg Tablet) 5 mg PO NOW ONE Stop: 08/24/23 20:20 Last Admin: 08/24/23 20:24 Dose: 5 mg Documented By: KARY Sodium Polystyrene Sulfonate (Sodium Polystyrene Sulfon/Sorb 15 Gm/60 Ml Cup) 30 gm PO NOW ONE Stop: 08/24/23 18:17 Last Admin: 08/24/23 18:51 Dose: 30 gm Documented By: JERE Sodium Polystyrene Sulfonate (Sodium Polystyrene Sulfon/Sorb 15 Gm/60 Ml Cup) 30 gm PO NOW ONE Stop: 08/25/23 00:05 Last Admin: 08/25/23 01:59 Dose: Not Given Documented By: YAQUELIN Vital Signs Vital signs: Vital Signs - 8 hr 08/25/23 00:24 Blood Pressure 172/88 H Medical Decision Making <Chan Almaraz DO - Last Filed: 08/25/23 07:04> Lab Data 08/24/23 17:23 08/24/23 23:24 Labs: Lab Results 08/24/23 08/24/23 Range/Units 17:23 23:24 WBC 6.9 (4.5-11.0) X10^3/uL RBC 2.55 L (4.5-5.9) X10^6/uL Hgb 8.7 L (13.5-17.5) g/dL Hct 25.2 L (41-53) % MCV 99.0 (80-100) fL MCH 34.2 H (26-34) PG MCHC 34.5 (30-36) % RDW 19.4 H (11.6-14.8) % Plt Count 172 (150-400) X10^3/uL Neut % (Auto) 77.8 H (50-75) % Lymph % (Auto) 10.4 L (25-40) % [place] % (Auto) 9.8 (3-14) % Eos % (Auto) 1.6 L (2-4) % Baso % (Auto) 0.4 (0-2) % Neut # (Auto) 5400 (5885-4498) /uL Lymph # (Auto) 700 L (4411-5436) /uL [place] # (Auto) 700 (0-900) /uL Eos # (Auto) 100 (0-450) /uL Baso # (Auto) 0 (0-100) /uL PT 13.6 H (9.4-12.5) SECONDS INR 1.2 (0.9-1.3) Sodium 133 L (137-145) mmol/L Potassium 6.3 H* 4.8 D (3.4-5.1) mmol/L Chloride 97 L (98-107) mmol/L Carbon Dioxide 25 (22-32) mmol/L BUN 68 H (9-20) mg/dL Creatinine 9.54 H* (0.66-1.25) mg/dL Estimated GFR 6 L (>60) mL/min BUN/Creatinine Ratio 7.1 (6-22) Glucose 150 H (80-110) mg/dL Lactate 0.7 (0.7-2.1) mmol/L Calcium 9.7 (8.4-10.2) mg/dL Total Bilirubin 0.7 (0.2-1.3) mg/dL AST 19 (17-59) IU/L ALT 11 (<50) IU/L Alkaline Phosphatase 112 (38-126) U/L Troponin I 0.026 (0.01-0.034) ng/mL NT-Pro-B Natriuret Pep 64657 H (<125) pg/mL Total Protein 7.3 (6.3-8.2) g/dL Albumin 4.3 (3.5-5.0) g/dL Globulin 3.0 (1.7-4.1) g/dL Albumin/Globulin Ratio 1.4 (1.0-2.8) ECG Data Attestation: I personally reviewed and interpreted this ECG as follows: Interpretation: Sinus rhythm Ventricular rate of 81 Left axis deviation LVH No ST T wave changes MDM Narrative Medical decision making narrative: Patient does have generalized abdominal pain but does seem to be most localized in left lower quadrant. Has a history of diverticulitis but has also had multiple abdominal surgeries to include a nephrectomy. Labs were ordered. CT scan ordered. Chest x-ray ordered. No antibiotics administered up to this point. Care turned over to Dr. Blanco to follow-up and disposition. <Juju Blanco MD - Last Filed: 08/25/23 00:46> Lab Data Labs: Lab Results 08/24/23 08/24/23 Range/Units 17:23 23:24 WBC 6.9 (4.5-11.0) X10^3/uL RBC 2.55 L (4.5-5.9) X10^6/uL Hgb 8.7 L (13.5-17.5) g/dL Hct 25.2 L (41-53) % MCV 99.0 (80-100) fL MCH 34.2 H (26-34) PG MCHC 34.5 (30-36) % RDW 19.4 H (11.6-14.8) % Plt Count 172 (150-400) X10^3/uL Neut % (Auto) 77.8 H (50-75) % Lymph % (Auto) 10.4 L (25-40) % [place] % (Auto) 9.8 (3-14) % Eos % (Auto) 1.6 L (2-4) % Baso % (Auto) 0.4 (0-2) % Neut # (Auto) 5400 (5463-6692) /uL Lymph # (Auto) 700 L (2864-4202) /uL [place] # (Auto) 700 (0-900) /uL Eos # (Auto) 100 (0-450) /uL Baso # (Auto) 0 (0-100) /uL PT 13.6 H (9.4-12.5) SECONDS INR 1.2 (0.9-1.3) Sodium 133 L (137-145) mmol/L Potassium 6.3 H* 4.8 D (3.4-5.1) mmol/L Chloride 97 L (98-107) mmol/L Carbon Dioxide 25 (22-32) mmol/L BUN 68 H (9-20) mg/dL Creatinine 9.54 H* (0.66-1.25) mg/dL Estimated GFR 6 L (>60) mL/min BUN/Creatinine Ratio 7.1 (6-22) Glucose 150 H (80-110) mg/dL Lactate 0.7 (0.7-2.1) mmol/L Calcium 9.7 (8.4-10.2) mg/dL Total Bilirubin 0.7 (0.2-1.3) mg/dL AST 19 (17-59) IU/L ALT 11 (<50) IU/L Alkaline Phosphatase 112 (38-126) U/L Troponin I 0.026 (0.01-0.034) ng/mL NT-Pro-B Natriuret Pep 33675 H (<125) pg/mL Total Protein 7.3 (6.3-8.2) g/dL Albumin 4.3 (3.5-5.0) g/dL Globulin 3.0 (1.7-4.1) g/dL Albumin/Globulin Ratio 1.4 (1.0-2.8) MDM Narrative Medical decision making narrative: Patient does have generalized abdominal pain but does seem to be most localized in left lower quadrant. Has a history of diverticulitis but has also had multiple abdominal surgeries to include a nephrectomy. Labs were ordered. CT scan ordered. Chest x-ray ordered. No antibiotics administered up to this point. Care turned over to Dr. Blanco to follow-up and disposition. Laboratory work shows hyperkalemia with potassium 6.2. No EKG changes. Patient missed dialysis today. Discussed patient's results with his hat forming machine feeder, Dr. Dacosta, who recommended administration of Kayexalate. If potassium comes down in the next several hours and there was an available chair at dialysis tomorrow then patient can be sent home. Unfortunately patient has normal dialysis center, [facility] dialysis in [place], did not have any available openings tomorrow morning and subsequently the patient's hat forming machine feeder recommended he be transferred to facility with dialysis capabilities. Patient's case discussed with [facility], however hospital unwilling to take patient as there was no need for emergent dialysis tonight. Shortly afterwards apparently there was a state wide outage of the [employer] computer system and no where locally is taking any transfers. After Kayexalate patient's repeat potassium 4.8. Patient states that he is certain that foods he was eating today caused his potassium to elevate. States that he will follow up with the dialysis center tomorrow for a repeat potassium draw and we will otherwise go to his dialysis as scheduled on Monday. Patient was counseled on the extreme importance of making sure that he attends dialysis as scheduled. Critical Care Time <Juju Blanco MD - Last Filed: 08/25/23 00:46> Critical Care Time Critical Care Time: Yes Total Critical Care Time: 42 Attestation: Correction of hyperkalemia, discussion with Nephrology, repeat potassium checks Discharge Plan Departure Patient Disposition: Home Clinical Impression: Diverticulitis, Hyperkalemia, Dialysis patient, Abdominal pain Instructions: DI for Diverticulitis Activity Restrictions/Additional Instructions: Your CT today shows diverticulitis. Your potassium when you arrived was 6.3, which is too high and puts you at risk for arrhythmias. After receiving medications here your potassium went back down to normal at 4.8. Unfortunately due to a state wide [employer] system crash the facilities in the surrounding area are not taking any transfers, and so we are unable to transfer you for dialysis today. It is extremely important that you go to dialysis as scheduled. Follow up with your hat forming machine feeder. For the diverticulitis finish all antibiotics as prescribed even if you feel improved. Prescriptions: New amoxicillin-pot clavulanate 875-125 mg tablet 1 tab PO Q12H Qty: 20 0RF No Action tamsulosin [Flomax] 0.4 MG capsule,extended release 24hr 0.4 mg PO BID Qty: 0 fexofenadine 180 MG tablet 180 mg PO QDAY Qty: 0 pravastatin 20 MG tablet 20 mg PO BEDTIME Qty: 0 multivitamin [Multiple Vitamins] 1 EACH tablet 1 tab PO QDAY Qty: 0 meclizine 25 MG tablet 25 mg PO PRN PRN (Reason: Vertigo) Qty: 0 tadalafil [Cialis] 20 MG tablet 20 mg PO PRN PRN (Reason: Sexual Activity) Qty: 0 Patient Comments: did not confirm with patient. evette polyethylene glycol 3350 [Miralax] 17 gram Powder In Packet 1 packet PO DAILY Vitamin C 1 tab PO DAILY vitamin E 1 cap PO DAILY amlodipine 5 mg Tablet 5 mg PO DAILY propranolol 10 mg Tablet 10 mg PO BID gemfibrozil 600 mg Tablet 600 mg PO BID hyoscyamine sulfate 0.125 mg Tablet 1 tab PO DIRECTED PRN (Reason: as directed) cholecalciferol (vitamin D3) 50 mcg (2,000 unit) capsule 50 mcg PO DAILY losartan 50 mg tablet 50 mg PO DAILY carvedilol 12.5 mg tablet 12.5 mg PO BID Rx Instructions: must administer with a meal/food aspirin [Adult Low Dose Aspirin] 81 mg tablet,delayed release (DR/EC) 81 mg PO DAILY amitriptyline 10 mg tablet 30 mg PO BEDTIME albuterol sulfate 90 mcg/actuation HFA aerosol inhaler 2 puff inhalation Q8-12H PRN (Reason: shortness of breath or wheezing) Qty: 6.7 5RF Referrals: Irasema Collins PA-C [Primary Care Provider] - Stand Alone Forms: Patient Portal/API
--- NOTE | 2023-08-24 17:32 | DI.CT.S_ITS ---
PROCEDURE: CT ABDOMEN PELVIS WO CON INDICATIONS: Generalized abdominal pain, history of diverticulitis TECHNIQUE: Axial sections were acquired from the lung bases to the pubic symphysis. Coronal and sagittal reformats were performed. For radiation dose reduction, the following was used: automated exposure control, adjustment of mA and/or kV according to patient size. COMPARISON: [facility], CT, CT ABDOMEN PELVIS WO CON, 04/26/2022, 22:44. FINDINGS: Image quality: Diagnostic. Lower Chest: Small bilateral pleural effusions. Mild bibasilar atelectasis and ground-glass. URINARY: Right Kidney: Surgically absent. Left Kidney: No stones or hydronephrosis. Left renal cysts. At the superior pole, there is an exophytic cyst which is indeterminate density and mildly increased in size compared to prior measuring 2 cm, previously 1.7 cm. Other cysts appear simple. Left Ureter: No hydroureter. Bladder: Normal wall thickness. No stones. ABDOMEN: Liver: No contour-deforming solid mass. Gallbladder: No radiopaque gallstones or wall thickening. Biliary ducts: No biliary dilation. Pancreas: No ductal dilation. Spleen: Size is within normal limits. Adrenal Glands: No adrenal nodules. Stomach and Bowel: Diverticulosis with wall thickening and pericolonic stranding involving the sigmoid colon, consistent with acute diverticulitis. No organized fluid collections or extraluminal gas. Remainder of the colon is normal in appearance with diverticulosis. Normal appendix. Peritoneum: No abnormal intraperitoneal fluid. No free air. Ventral Wall: No hernia. Abdominal Nodes: No enlarged retroperitoneal or mesenteric lymph nodes. Vessels: Aorta and inferior vena cava are normal in size. Atherosclerotic vascular calcifications. PELVIS: Pelvic Organs: Unremarkable. Pelvic Nodes: Unremarkable. Miscellaneous: No inguinal hernias are seen. Bones: Degenerative changes of the spine. Stable anterolisthesis of L5 on S1. IMPRESSION: 1. Acute uncomplicated diverticulitis of the sigmoid colon. 2. Indeterminate left renal cyst is mildly increased in size compared to prior. Recommend nonurgent renal ultrasound for further evaluation. 3. Status post right nephrectomy. 4. Small bilateral pleural effusions. Mild ground-glass is noted at the bases, may represent edema or atelectasis. Dictated by: Jack Garland M.D. on 08/24/2023 at 17:56 Approved by: Jack Garland M.D. on 08/24/2023 at 18:02
[2023-08-24 17:39] LABS: INR 1.2 (0.9-1.3); Prothrombin Time 13.6 SECONDS (9.4-12.5)
[2023-08-24 17:44] LABS: Lactate (Lactic Acid) 0.7 mmol/L (0.7-2.1)
[2023-08-24 17:45] LABS: Alanine Aminotransferase 11 IU/L (<50); Albumin 4.3 g/dL (3.5-5.0); Albumin Globulin Ratio 1.4 (1.0-2.8); Alkaline Phosphatase 112 U/L (38-126); Aspartate Aminotransferase 19 IU/L (17-59); Bilirubin Total 0.7 mg/dL (0.2-1.3); Blood Urea Nitrogen 68 mg/dL (9-20); Calcium 9.7 mg/dL (8.4-10.2); Carbon Dioxide 25 mmol/L (22-32); Chloride 97 mmol/L (98-107); Glucose 150 mg/dL (80-110); HEMOLYSIS < 15 (0-50); Sodium 133 mmol/L (137-145); Total Protein 7.3 g/dL (6.3-8.2)
[2023-08-24 17:53] LABS: BUN Creatinine Ratio 7.1 (6-22); Estimated Glomerular Filt Rate 6 mL/min (>60)
[2023-08-24 17:57] LABS: Troponin I 0.026 ng/mL (0.01-0.034)
[2023-08-24 18:00] LABS: Potassium 6.3 mmol/L (3.4-5.1)
[2023-08-24 18:10] LABS: NT-proBNP (BNP-Adult 18+) 34300 pg/mL (<125)
[2023-08-24] MEDS: SODIUM POLYSTYRENE SULFON/SORB 15 GM/60 ML CUP 30 GM PO (18:51)
[2023-08-24] MEDS: OXYCODONE IR 5 MG TABLET PO (20:24)
[2023-08-24] MEDS: SODIUM ZIRCONIUM CYCLOSILICATE 10 GM POWD.PACK PO (20:24)
[2023-08-24 23:38] LABS: HEMOLYSIS < 15 (0-50); Potassium 4.8 mmol/L (3.4-5.1)
[2023-08-25 00:24] VITALS: BP 172/88
== END 2023-08-25 02:02 | disposition home or self-care (01) ==
PROVIDERS: Emergency Medicine; Emergency Provider Emergency Medicine; PCP Physician Assistant Medical
DX: K57.92 Diverticulitis of intestine, part unspecified, without perforation or abscess without bleeding (principal); E87.5 Hyperkalemia; R10.32 Left lower quadrant pain; N18.6 End stage renal disease; Z99.2 Dependence on renal dialysis; Z79.899 Other long term (current) drug therapy
CPT/HCPCS: 36415; 71045; 74176; 80053; 83605; 83880; 84132; 84484; 85025; 85610; 93005; 99284

== ENCOUNTER 2023-08-26 19:37 | Emergency (ER) | payer MEDICARE, OTHER, SELFPAY ==
[2023-08-26] VITALS (20 sets, daily range): BP systolic 177–221; BP diastolic 84–176; PULSE 79–92; RESP 17–30; TEMP 36.6; O2SAT 91–98; BMI 29.9
--- NOTE | 2023-08-26 19:45 | PC.NURSE ---
pt had dialysis today and was given O2 at dialysis d/t SOB has been feeling SOB for a couple of days making it difficult to sleep. pt states he normally feels better after dialysis, which he has been on for about 2.5 yrs and the only time he feels SOB is when doing yard work after which he will rest and feel better. does have a hx of right upper lobectomy d/t lung ca and recent right nephrectomy does not use O2 at home. did complete his dialysis pt able to speak in sentences
--- NOTE | 2023-08-26 19:46 | DI.RAD.S_ITS ---
PROCEDURE: XR CHEST 1V INDICATIONS: Shortness of breath TECHNIQUE: One view of the chest was acquired. COMPARISON: [facility], CR, XR CHEST 1V, 08/24/2023, 16:17. [facility], CR, XR CHEST 1V, 09/19/2017, 11:14. FINDINGS: Surgical changes and devices: None. Lungs and pleura: Lungs are abnormal with bilateral patchy alveolar infiltration, right greater than left, potentially a manifestation of atypical/viral pneumonia. No pleural effusions or pneumothorax. Mediastinum: Mediastinal contours appear normal. Heart size is normal. Bones and chest wall: No suspicious bony lesions. Overlying soft tissues appear unremarkable. IMPRESSION: Bilateral patchy alveolitis pattern, potentially a manifestation atypical/viral pneumonia. Dictated by: Enrique Rowland M.D. on 08/26/2023 at 20:20 Approved by: Enrique Rowland M.D. on 08/26/2023 at 20:21
--- NOTE | 2023-08-26 20:02 | EKG_ITS ---
[facility] [address] [place] [address] Test Date: 2023-08-26 Pat Name: Allan Bruno Department: [facility] Room: Gender: Male Government Teacher: KARMEN : 1960 Requested By: Order Number: [id number] Reading MD: Abilio Partida Measurements Intervals [place] Rate: 82 P: 4 WI: 194 QRS: -26 QRSD: 108 T: 5 QT: 426 QTc: 497 Interpretive Statements Normal sinus rhythm Possible Left atrial enlargement Incomplete right bundle branch block Left ventricular hypertrophy ( R in aVL , Frank product ) Prolonged QT Electronically Signed On 08-27-2023 8:23:55 PDT by Abilio Partida
[2023-08-26 20:18] LABS: Basophils Absolute Auto 0 /uL (0-100); Basophils Percent Auto 0.4 % (0-2); Eosinophils Absolute Auto 100 /uL (0-450); Hemoglobin 8.3 g/dL (13.5-17.5); Lymphocytes Absolute Auto 600 /uL (1100-4500); Neutrophils Absolute Auto 4700 /uL (1500-7000); Neutrophils Percent Auto 76.2 % (50-75); Red Blood Cell Count 2.41 X10^6/uL (4.5-5.9)
[2023-08-26 20:22] LABS: Add Manual Diff / Slide Review NO; Eosinophils Percent Auto 1.6 % (2-4); Hematocrit 23.8 % (41-53); Lymphocytes Percent Auto 10.3 % (25-40); Mean Corpuscular HGB Conc 34.9 % (30-36); Mean Corpuscular Hemoglobin 34.5 PG (26-34); Mean Corpuscular Volume 98.8 fL (80-100); Monocytes Absolute Auto 700 /uL (0-900); Monocytes Percent Auto 11.5 % (3-14); Platelet Count 217 X10^3/uL (150-400); Red Cell Distribution Width 19.2 % (11.6-14.8); White Blood Cell Count 6.1 X10^3/uL (4.5-11.0)
[2023-08-26 20:23] LABS: INR 1.3 (0.9-1.3); Prothrombin Time 14.5 SECONDS (9.4-12.5)
[2023-08-26 20:27] LABS: Lactate (Lactic Acid) 1.3 mmol/L (0.7-2.1)
[2023-08-26 20:28] LABS: Alanine Aminotransferase 12 IU/L (<50); Albumin 3.9 g/dL (3.5-5.0); Albumin Globulin Ratio 1.2 (1.0-2.8); Alkaline Phosphatase 107 U/L (38-126); Aspartate Aminotransferase 18 IU/L (17-59); BUN Creatinine Ratio 6.4 (6-22); Bilirubin Total 0.8 mg/dL (0.2-1.3); Blood Urea Nitrogen 42 mg/dL (9-20); Carbon Dioxide 26 mmol/L (22-32); Chloride 97 mmol/L (98-107); Estimated Glomerular Filt Rate 9 mL/min (>60); Globulin 3.3 g/dL (1.7-4.1); Glucose 138 mg/dL (80-110); HEMOLYSIS < 15 (0-50); Potassium 4.2 mmol/L (3.4-5.1); Sodium 132 mmol/L (137-145); Total Protein 7.2 g/dL (6.3-8.2)
[2023-08-26 20:40] LABS: Troponin I 0.034 ng/mL (0.01-0.034)
[2023-08-26 21:02] LABS: NT-proBNP (BNP-Adult 18+) 37100 pg/mL (<125)
--- NOTE | 2023-08-26 21:23 | ED_ITS ---
HPI - SOB/Dyspnea <Dilip Fernández MD - Last Filed: 08/27/23 23:19> General Chief Complaint: Shortness of Breath/Dyspnea Stated Complaint: SOB/labored breathing Time Seen by Provider: 08/26/23 20:23 Source: patient Mode of arrival: Ambulatory History of Present Illness HPI Narrative: 63-year-old male with history of prior left lung lobectomy due to lung cancer, prior right-sided nephrectomy due to kidney cancer, history of diabetes, history of IgA nephropathy, end-stage renal failure, followed by staple laster Dr. Dacosta of [facility] in [place], hemodialysis dependent for the last 2 years, has had hemodialysis Monday regimen via left upper arm AV fistula, had full run yesterday, using an inhaler that was prescribed last week by primary care provider in [place] for increasing shortness of breath, admits to 2 days duration cough, slight blood-tinged, increased shortness of breath today, not usually on oxygen. Seen a couple of days ago here in this ER with abdominal discomfort, diagnosed with diverticulitis, taking oral Augmentin, day 2 of oral antibiotics. His abdominal pain is decreased. He denies chest discomfort. Related Data Home Medications Medication Instructions Recorded Confirmed fexofenadine 180 mg tablet 180 mg PO QDAY #0 tabs 11/04/15 03/09/23 meclizine 25 mg tablet 25 mg PO PRN PRN Vertigo ##0 11/04/15 03/09/23 multivitamin (Multiple Vitamins 1 tab PO QDAY #0 tabs 11/04/15 03/09/23 tablet) pravastatin 20 mg tablet 20 mg PO BEDTIME ##0 11/04/15 03/09/23 tadalafil 20 mg tablet (Cialis) 20 mg PO PRN PRN Sexual Activity 11/04/15 03/09/23 ##0 tamsulosin 0.4 mg capsule (Flomax) 0.4 mg PO BID ##0 11/04/15 03/09/23 Vitamin C 1 tab PO DAILY 09/19/17 03/09/23 amlodipine 5 mg tablet 5 mg PO DAILY 09/19/17 03/09/23 gemfibrozil 600 mg tablet 600 mg PO BID 09/19/17 03/09/23 hyoscyamine sulfate 0.125 mg tablet 1 tab PO DIRECTED PRN as 09/19/17 03/09/23 directed polyethylene glycol 3350 17 gram 1 packet PO DAILY 09/19/17 03/09/23 oral powder packet (Miralax) propranolol 10 mg tablet 10 mg PO BID 09/19/17 03/09/23 vitamin E 1 cap PO DAILY 09/19/17 03/09/23 amitriptyline 10 mg tablet 30 mg PO BEDTIME 02/19/20 03/09/23 aspirin 81 mg tablet,delayed 81 mg PO DAILY 02/19/20 03/09/23 release (Adult Low Dose Aspirin) carvedilol 12.5 mg tablet 12.5 mg PO BID 02/19/20 03/09/23 cholecalciferol (vitamin D3) 50 50 mcg PO DAILY 02/19/20 03/09/23 mcg (2,000 unit) capsule losartan 50 mg tablet 50 mg PO DAILY 02/19/20 03/09/23 Previous Rx's Medication Instructions Recorded albuterol sulfate 90 mcg/actuation 2 puff inhalation Q8-12H PRN 01/03/23 aerosol inhaler shortness of breath or wheezing #6.7 grams amoxicillin 875 mg-potassium 1 tab PO Q12H #20 tabs 08/25/23 clavulanate 125 mg tablet Allergies Allergy/AdvReac Type Severity Reaction Status Date / Time No Known Drug Allergies Allergy Verified 08/26/23 19:44 Review of Systems <Dilip Fernández MD - Last Filed: 08/27/23 23:19> Review of Systems Narrative: per HPI Patient History <Dilip Fernández MD - Last Filed: 08/27/23 23:19> Medical History Lumbar foraminal stenosis Spondylolisthesis at L5-S1 level Facet arthropathy, lumbar Degenerative joint disease of foot Lumbosacral radiculopathy at S1 Sensory peripheral neuropathy Hypertension Renal insufficiency Surgical History History of lung surgery H/O left knee surgery Family History Father Natural with unknown cause Hypertension Heart disease Social History Smoking Status: Never smoker Smoking Status: Never smoker alcohol intake frequency: other Substance Use Type: does not use Exam <Dilip Fernández MD - Last Filed: 08/27/23 23:19> Narrative Exam Narrative: GENERAL: Well-developed patient, in mild distress. HEAD: Atraumatic. Normocephalic. EYES: Pupils equal round and reactive. Extraocular motions intact. No scleral icterus. No injection or drainage. ENT: Nose without bleeding, purulent drainage. Throat without erythema, tonsillar hypertrophy or exudate. Airway patent. NECK: Trachea midline. Non tender CARDIOVASCULAR: Regular rate and rhythm without murmurs, gallops, or rubs. RESPIRATORY: Crackles bibasilar, on oxygen via nasal cannula, speaks in full sentences. Clear to auscultation. Could not hear wheeze. No retractions. GASTROINTESTINAL: Abdomen is soft, nontender, nondistended, midline scar from nephrectomy surgery well healed, no obvious ventral hernia. EXTREMITIES: No edema or joint tenderness. BACK: Nontender without deformity or crepitance. No flank tenderness. Left upper arm AV fistula with good palpable thrill, distal pulses and perfusion left wrist/hand normal. No lower extremity edema. NEURO: AOx3. SKIN: No rash or erythema of visible areas Initial Vital Signs Initial Vital Signs: Vital Signs Temperature 97.8 F 08/26/23 19:39 Pulse Rate 83 08/26/23 19:39 Respiratory Rate 26 H 08/26/23 19:39 Blood Pressure 177/85 H 08/26/23 19:39 Pulse Oximetry 96 08/26/23 19:39 Oxygen Delivery Method Room Air 08/26/23 19:39 <Alicia Naranjo DO - Last Filed: 08/27/23 13:39> Initial Vital Signs Initial Vital Signs: Vital Signs Temperature 97.8 F 08/26/23 19:39 Pulse Rate 83 08/26/23 19:39 Respiratory Rate 26 H 08/26/23 19:39 Blood Pressure 177/85 H 08/26/23 19:39 Pulse Oximetry 96 08/26/23 19:39 Oxygen Delivery Method Room Air 08/26/23 19:39 Course <Dilip Fernández MD - Last Filed: 08/27/23 23:19> Orders Ordered: Discontinued Medications Acetaminophen (Acetaminophen 325 Mg Tablet) 975 mg PO NOW ONE Stop: 08/27/23 07:59 Last Admin: 08/27/23 08:15 Dose: 975 mg Documented By: Albuterol/Ipratropium (Albuterol/Ipratropium 3 Ml Ampul) 3 ml INH NOW ONE Stop: 08/26/23 21:28 Last Admin: 08/26/23 21:41 Dose: 3 ml Documented By: Amlodipine Besylate (Amlodipine 5 Mg Tablet) 5 mg PO NOW ONE Stop: 08/27/23 08:08 Last Admin: 08/27/23 08:15 Dose: 5 mg Documented By: Azithromycin (Azithromycin 250 Mg Tablet) 500 mg PO NOW ONE Stop: 08/26/23 21:26 Last Admin: 08/26/23 22:51 Dose: 500 mg Documented By: AL Carvedilol (Carvedilol 12.5 Mg Tablet) 12.5 mg PO NOW ONE Stop: 08/27/23 08:08 Last Admin: 08/27/23 08:16 Dose: 12.5 mg Documented By: Ceftriaxone Sodium 1,000 mg/ (Sodium Chloride) 100 mls @ 200 mls/hr IV NOW ONE Stop: 08/26/23 21:26 Last Infusion: 08/26/23 23:29 Dose: Infused Documented By: Admin: 08/26/23 22:50 Dose: 200 mls/hr Documented By: AL Furosemide 80 mg/ Sodium (Chloride) 58 mls @ 116 mls/hr IV NOW ONE Stop: 08/26/23 21:27 Last Infusion: 08/26/23 22:35 Dose: Infused Documented By: Admin: 08/26/23 21:59 Dose: 116 mls/hr Documented By: AL Losartan Potassium (Losartan 50 Mg Tablet) 50 mg PO NOW ONE Stop: 08/27/23 08:08 Last Admin: 08/27/23 08:16 Dose: 50 mg Documented By: Morphine Sulfate (Morphine 2 Mg/Ml Inj) 2 mg IV NOW ONE Stop: 08/27/23 01:26 Last Admin: 08/27/23 01:29 Dose: 2 mg Documented By: AL Nitroglycerin (Nitroglycerin 0.4 Mg Patch) 0.4 mg TOP 0700 [facility] Nitroglycerin (Nitroglycerin Oint 1 Inch/Gm Oint...G.) 1.5 inch TOP NOW ONE Stop: 08/26/23 21:50 Last Admin: 08/26/23 22:01 Dose: 1.5 inch Documented By: AL Polyethylene Glycol (Polyethylene Glycol 3350 17 Gm Powd.Pack) 17 gm PO NOW ONE Stop: 08/27/23 09:11 Last Admin: 08/27/23 09:23 Dose: 17 gm Documented By: Propranolol HCl (Propranolol 10 Mg Tablet) 10 mg PO NOW ONE Stop: 08/27/23 09:11 Last Admin: 08/27/23 09:23 Dose: 10 mg Documented By: Vital Signs Vital signs: Vital Signs - 8 hr 08/27/23 06:00 08/27/23 06:00 08/27/23 06:30 Pulse Rate 78 93 H Respiratory Rate 22 26 H Blood Pressure 180/78 H Pulse Oximetry 93 94 Oxygen Delivery Method Nasal Cannula Oxygen Flow Rate 2 08/27/23 07:00 08/27/23 07:30 08/27/23 08:00 Pulse Rate 89 86 88 Respiratory Rate 22 22 16 Blood Pressure Pulse Oximetry 97 97 97 Oxygen Delivery Method Oxygen Flow Rate 2 08/27/23 08:00 08/27/23 08:55 08/27/23 09:00 Pulse Rate 90 90 Respiratory Rate 22 Blood Pressure 208/97 H Pulse Oximetry 92 Oxygen Delivery Method Oxygen Flow Rate 08/27/23 09:03 08/27/23 09:03 08/27/23 09:30 Pulse Rate 89 87 Respiratory Rate 21 23 Blood Pressure 202/86 H Pulse Oximetry 92 93 Oxygen Delivery Method Room Air Oxygen Flow Rate 08/27/23 09:30 08/27/23 10:13 Pulse Rate 92 H Respiratory Rate 22 Blood Pressure 194/84 H 184/87 H Pulse Oximetry 98 Oxygen Delivery Method Nasal Cannula Oxygen Flow Rate 2 <Alicia Naranjo, DO - Last Filed: 08/27/23 13:39> Orders Ordered: Discontinued Medications Acetaminophen (Acetaminophen 325 Mg Tablet) 975 mg PO NOW ONE Stop: 08/27/23 07:59 Last Admin: 08/27/23 08:15 Dose: 975 mg Documented By: Albuterol/Ipratropium (Albuterol/Ipratropium 3 Ml Ampul) 3 ml INH NOW ONE Stop: 08/26/23 21:28 Last Admin: 08/26/23 21:41 Dose: 3 ml Documented By: Amlodipine Besylate (Amlodipine 5 Mg Tablet) 5 mg PO NOW ONE Stop: 08/27/23 08:08 Last Admin: 08/27/23 08:15 Dose: 5 mg Documented By: Azithromycin (Azithromycin 250 Mg Tablet) 500 mg PO NOW ONE Stop: 08/26/23 21:26 Last Admin: 08/26/23 22:51 Dose: 500 mg Documented By: AL Carvedilol (Carvedilol 12.5 Mg Tablet) 12.5 mg PO NOW ONE Stop: 08/27/23 08:08 Last Admin: 08/27/23 08:16 Dose: 12.5 mg Documented By: Ceftriaxone Sodium 1,000 mg/ (Sodium Chloride) 100 mls @ 200 mls/hr IV NOW ONE Stop: 08/26/23 21:26 Last Infusion: 08/26/23 23:29 Dose: Infused Documented By: Admin: 08/26/23 22:50 Dose: 200 mls/hr Documented By: AL Furosemide 80 mg/ Sodium (Chloride) 58 mls @ 116 mls/hr IV NOW ONE Stop: 08/26/23 21:27 Last Infusion: 08/26/23 22:35 Dose: Infused Documented By: Admin: 08/26/23 21:59 Dose: 116 mls/hr Documented By: AL Losartan Potassium (Losartan 50 Mg Tablet) 50 mg PO NOW ONE Stop: 08/27/23 08:08 Last Admin: 08/27/23 08:16 Dose: 50 mg Documented By: Morphine Sulfate (Morphine 2 Mg/Ml Inj) 2 mg IV NOW ONE Stop: 08/27/23 01:26 Last Admin: 08/27/23 01:29 Dose: 2 mg Documented By: AL Nitroglycerin (Nitroglycerin 0.4 Mg Patch) 0.4 mg TOP 0700 [facility] Nitroglycerin (Nitroglycerin Oint 1 Inch/Gm Oint...G.) 1.5 inch TOP NOW ONE Stop: 08/26/23 21:50 Last Admin: 08/26/23 22:01 Dose: 1.5 inch Documented By: AL Polyethylene Glycol (Polyethylene Glycol 3350 17 Gm Powd.Pack) 17 gm PO NOW ONE Stop: 08/27/23 09:11 Last Admin: 08/27/23 09:23 Dose: 17 gm Documented By: Propranolol HCl (Propranolol 10 Mg Tablet) 10 mg PO NOW ONE Stop: 08/27/23 09:11 Last Admin: 08/27/23 09:23 Dose: 10 mg Documented By: Vital Signs Vital signs: Vital Signs - 8 hr 08/27/23 06:00 08/27/23 06:00 08/27/23 06:30 Pulse Rate 78 93 H Respiratory Rate 22 26 H Blood Pressure 180/78 H Pulse Oximetry 93 94 Oxygen Delivery Method Nasal Cannula Oxygen Flow Rate 2 08/27/23 07:00 08/27/23 07:30 08/27/23 08:00 Pulse Rate 89 86 88 Respiratory Rate 22 22 16 Blood Pressure Pulse Oximetry 97 97 97 Oxygen Delivery Method Oxygen Flow Rate 2 08/27/23 08:00 08/27/23 08:55 08/27/23 09:00 Pulse Rate 90 90 Respiratory Rate 22 Blood Pressure 208/97 H Pulse Oximetry 92 Oxygen Delivery Method Oxygen Flow Rate 08/27/23 09:03 08/27/23 09:03 08/27/23 09:30 Pulse Rate 89 87 Respiratory Rate 21 23 Blood Pressure 202/86 H Pulse Oximetry 92 93 Oxygen Delivery Method Room Air Oxygen Flow Rate 08/27/23 09:30 08/27/23 10:13 Pulse Rate 92 H Respiratory Rate 22 Blood Pressure 194/84 H 184/87 H Pulse Oximetry 98 Oxygen Delivery Method Nasal Cannula Oxygen Flow Rate 2 MDM - SOB/Dyspnea <Dilip Fernández MD - Last Filed: 08/27/23 23:19> Medical Records Attestation: I reviewed the patient's medical records. Lab Data Attestation: I reviewed the patient's lab results. 08/26/23 20:05 08/26/23 20:05 Labs: Lab Results 08/26/23 08/26/23 Range/Units 20:05 20:48 WBC 6.1 (4.5-11.0) X10^3/uL RBC 2.41 L (4.5-5.9) X10^6/uL Hgb 8.3 L (13.5-17.5) g/dL Hct 23.8 L (41-53) % MCV 98.8 (80-100) fL MCH 34.5 H (26-34) PG MCHC 34.9 (30-36) % RDW 19.2 H (11.6-14.8) % Plt Count 217 (150-400) X10^3/uL Neut % (Auto) 76.2 H (50-75) % Lymph % (Auto) 10.3 L (25-40) % [place] % (Auto) 11.5 (3-14) % Eos % (Auto) 1.6 L (2-4) % Baso % (Auto) 0.4 (0-2) % Neut # (Auto) 4700 (8822-7688) /uL Lymph # (Auto) 600 L (0666-8846) /uL [place] # (Auto) 700 (0-900) /uL Eos # (Auto) 100 (0-450) /uL Baso # (Auto) 0 (0-100) /uL PT 14.5 H (9.4-12.5) SECONDS INR 1.3 (0.9-1.3) Sodium 132 L (137-145) mmol/L Potassium 4.2 (3.4-5.1) mmol/L Chloride 97 L (98-107) mmol/L Carbon Dioxide 26 (22-32) mmol/L BUN 42 H (9-20) mg/dL Creatinine 6.59 H (0.66-1.25) mg/dL Estimated GFR 9 L (>60) mL/min BUN/Creatinine Ratio 6.4 (6-22) Glucose 138 H (80-110) mg/dL Lactate 1.3 (0.7-2.1) mmol/L Calcium 9.0 (8.4-10.2) mg/dL Total Bilirubin 0.8 (0.2-1.3) mg/dL AST 18 (17-59) IU/L ALT 12 (<50) IU/L Alkaline Phosphatase 107 (38-126) U/L Troponin I 0.034 (0.01-0.034) ng/mL NT-Pro-B Natriuret Pep 71694 H (<125) pg/mL Total Protein 7.2 (6.3-8.2) g/dL Albumin 3.9 (3.5-5.0) g/dL Globulin 3.3 (1.7-4.1) g/dL Albumin/Globulin Ratio 1.2 (1.0-2.8) Chlamy pneumoniae PCR Not detected (Not Detect) Adenovirus (PCR) Not detected (Not Detect) B.parapertussis DNA PCR Not detected (Not Detecte) Coronavirus OC43 (PCR) Not detected (Not Detect) Coronavirus HKU1 (PCR) Not detected (Not Detect) Coronavirus 229E (PCR) Not detected (Not Detect) SARS-CoV-2 (PCR) Not detected (Not Detecte) Coronavirus NL63 (PCR) Not detected (Not Detect) Human Metapneumovir PCR Not detected (Not Detect) Influenza Type A (PCR) Not detected (Not Detect) Influenza Type B (PCR) Not detected (Not Detect) M. pneumoniae (PCR) Not detected (Not Detect) Parainfluenza 1 (PCR) Not detected (Not Detect) Parainfluenza 2 (PCR) Not detected (Not Detect) Parainfluenza 3 (PCR) Not detected (Not Detect) Parainfluenza 4 (PCR) Not detected (Not Detect) RSV (PCR) Not detected (Not Detect) Entero/Rhino (PCR) Not detected (Not Detect) Point of Care Testing Glucose POC 69 Imaging Data Chest x-ray: Radiologist's Impression: [address] [address] XRay Report Signed Patient: Allan Bruno MR#: [id number] : 1960 Acct:[id number] Age/Sex: 63 / M Date of Service: 08/26/23 Loc: ED Accession Number: [id number] Procedure: XR chest 1V Ordering Provider: Dilip Fernández MD PROCEDURE: XR CHEST 1V INDICATIONS: Shortness of breath TECHNIQUE: One view of the chest was acquired. COMPARISON: [facility], , XR CHEST 1V, 08/24/2023, 16:17. [facility], , XR CHEST 1V, 09/19/2017, 11:14. FINDINGS: Surgical changes and devices: None. Lungs and pleura: Lungs are abnormal with bilateral patchy alveolar infiltration, right greater than left, potentially a manifestation of atypical/viral pneumonia. No pleural effusions or pneumothorax. Mediastinum: Mediastinal contours appear normal. Heart size is normal. Bones and chest wall: No suspicious bony lesions. Overlying soft tissues appear unremarkable. IMPRESSION: Bilateral patchy alveolitis pattern, potentially a manifestation atypical/viral pneumonia. Dictated by: Enrique Rowland M.D. on 08/26/2023 at 20:20 Approved by: Enrique Rowland M.D. on 08/26/2023 at 20:21 ECG Data Attestation: I personally reviewed and interpreted this ECG as follows: Interpretation: Normal sinus rhythm with rate of 82, no obvious ST segment elevation, significant movement artifact in lead V1, T-wave flattening lead 3. NC 194, QRS 108, QTC 497. MDM Narrative Medical decision making narrative: 63-year-old male with history of dialysis dependent end-stage renal disease, now with 2 days cough and increasing shortness of breath, new hypoxia, bibasilar crackles, day 2 of oral Augmentin for recent diagnosis of diverticulitis, improved abdominal pain symptoms, no abdominal tenderness on exam. White blood cell count not elevated. Hemoglobin decreased but similar arranged prior studies. History of remote left partial lobectomy due to lung cancer. History of right nephrectomy. Left AV fistula access for dialysis that was completed full run yesterday. Screening chest x-ray suspicious for bibasilar infiltrates, respiratory panel requested, results pending at this time. Blood cultures requested, IV ceftriaxone, oral azithromycin for community acquired pneumonia coverage. No inpatient dialysis available here, anticipate transfer, consider [facility] where his nephrologists practices. Patient expresses understanding for need for admission/transfer BNP [id number] noted, patient does make some urine, IV Lasix, add topical nitroglycerin. Antibiotics initiated in case of pneumonia by chest x-ray reading. Respiratory swab results still pending. Nephrology capable transfer facilities being contacted Respiratory panel negative. Still awaiting contact from potential receiving facilities for transfer 0130, no beds [facility] still working on bed placement 0400, per [facility] patient is waitlisted in many different systems, bed search still in progress 0700, still awaiting placement, signed out to Dr Marcella Bowers- Patient is signed out to me by Dr. Fernández. I have seen evaluated patient myself. This morning he reports that he is coughing since he is albuterol treatment still requiring 1-2 L of oxygen. He has a history of end- stage renal disease on dialysis received dialysis yesterday but still hypoxic. Thought to have pneumonia with bilateral infiltrates on x-ray. He is treated with Rocephin azithromycin no evidence of severe sepsis. He has not hypotensive and has a normal lactate. Blood cultures are pending. Sepsis fluids not indicated due to dialysis patient already hypoxic and not hypotensive without evidence of severe sepsis. This morning he is complaining of light headache. Possibly from nitroglycerin Which was given for diuresis. He was actually seen and evaluated here on August 23 for abdominal pain and diarrhea. He missed dialysis on because of his abdominal pain. he was found to have a potassium of 6.3 was treated with lactulose, potassium went down to 4.8. 0800 Mavis Vazquez, accepts patient has [facility] <Alicia Naranjo DO - Last Filed: 08/27/23 13:39> Lab Data Labs: Lab Results 08/26/23 08/26/23 Range/Units 20:05 20:48 WBC 6.1 (4.5-11.0) X10^3/uL RBC 2.41 L (4.5-5.9) X10^6/uL Hgb 8.3 L (13.5-17.5) g/dL Hct 23.8 L (41-53) % MCV 98.8 (80-100) fL MCH 34.5 H (26-34) PG MCHC 34.9 (30-36) % RDW 19.2 H (11.6-14.8) % Plt Count 217 (150-400) X10^3/uL Neut % (Auto) 76.2 H (50-75) % Lymph % (Auto) 10.3 L (25-40) % [place] % (Auto) 11.5 (3-14) % Eos % (Auto) 1.6 L (2-4) % Baso % (Auto) 0.4 (0-2) % Neut # (Auto) 4700 (6731-3639) /uL Lymph # (Auto) 600 L (0064-8436) /uL [place] # (Auto) 700 (0-900) /uL Eos # (Auto) 100 (0-450) /uL Baso # (Auto) 0 (0-100) /uL PT 14.5 H (9.4-12.5) SECONDS INR 1.3 (0.9-1.3) Sodium 132 L (137-145) mmol/L Potassium 4.2 (3.4-5.1) mmol/L Chloride 97 L (98-107) mmol/L Carbon Dioxide 26 (22-32) mmol/L BUN 42 H (9-20) mg/dL Creatinine 6.59 H (0.66-1.25) mg/dL Estimated GFR 9 L (>60) mL/min BUN/Creatinine Ratio 6.4 (6-22) Glucose 138 H (80-110) mg/dL Lactate 1.3 (0.7-2.1) mmol/L Calcium 9.0 (8.4-10.2) mg/dL Total Bilirubin 0.8 (0.2-1.3) mg/dL AST 18 (17-59) IU/L ALT 12 (<50) IU/L Alkaline Phosphatase 107 (38-126) U/L Troponin I 0.034 (0.01-0.034) ng/mL NT-Pro-B Natriuret Pep 01374 H (<125) pg/mL Total Protein 7.2 (6.3-8.2) g/dL Albumin 3.9 (3.5-5.0) g/dL Globulin 3.3 (1.7-4.1) g/dL Albumin/Globulin Ratio 1.2 (1.0-2.8) Chlamy pneumoniae PCR Not detected (Not Detect) Adenovirus (PCR) Not detected (Not Detect) B.parapertussis DNA PCR Not detected (Not Detecte) Coronavirus OC43 (PCR) Not detected (Not Detect) Coronavirus HKU1 (PCR) Not detected (Not Detect) Coronavirus 229E (PCR) Not detected (Not Detect) SARS-CoV-2 (PCR) Not detected (Not Detecte) Coronavirus NL63 (PCR) Not detected (Not Detect) Human Metapneumovir PCR Not detected (Not Detect) Influenza Type A (PCR) Not detected (Not Detect) Influenza Type B (PCR) Not detected (Not Detect) M. pneumoniae (PCR) Not detected (Not Detect) Parainfluenza 1 (PCR) Not detected (Not Detect) Parainfluenza 2 (PCR) Not detected (Not Detect) Parainfluenza 3 (PCR) Not detected (Not Detect) Parainfluenza 4 (PCR) Not detected (Not Detect) RSV (PCR) Not detected (Not Detect) Entero/Rhino (PCR) Not detected (Not Detect) Point of Care Testing Glucose POC 69 MDM Narrative Medical decision making narrative: 63-year-old male with history of dialysis dependent end-stage renal disease, now with 2 days cough and increasing shortness of breath, new hypoxia, bibasilar crackles, day 2 of oral Augmentin for recent diagnosis of diverticulitis, improved abdominal pain symptoms, no abdominal tenderness on exam. White blood cell count not elevated. Hemoglobin decreased but similar arranged prior studies. History of remote left partial lobectomy due to lung cancer. History of right nephrectomy. Left AV fistula access for dialysis that was completed full run yesterday. Screening chest x-ray suspicious for bibasilar infiltrates, respiratory panel requested, results pending at this time. Blood cultures requested, IV ceftriaxone, oral azithromycin. No inpatient dialysis available here, anticipate transfer, consider [facility] where his nephrologists practices. Patient expresses understanding for need for admission/transfer BNP [id number] noted, patient does make some urine, IV Lasix, add topical nitroglycerin. Antibiotics initiated in case of pneumonia by chest x-ray reading. Respiratory swab results still pending. Nephrology capable transfer facilities being contacted Respiratory panel negative. Still awaiting contact from potential receiving facilities for transfer 0130, still working on bed placement 0400, per [facility] patient is waitlisted in many different systems, bed search still in progress 0700, still awaiting placement, signed out to Dr Marcella Bowers- Patient is signed out to me by Dr. Fernández. I have seen evaluated patient myself. This morning he reports that he is coughing since he is albuterol treatment still requiring 1-2 L of oxygen. He has a history of end- stage renal disease on dialysis received dialysis yesterday but still hypoxic. Thought to have pneumonia with bilateral infiltrates on x-ray. He is treated with Rocephin azithromycin no evidence of severe sepsis. He has not hypotensive and has a normal lactate. Blood cultures are pending. Sepsis fluids not indicated due to dialysis patient already hypoxic and not hypotensive without evidence of severe sepsis. This morning he is complaining of light headache. Possibly from nitroglycerin Which was given for diuresis. He was actually seen and evaluated here on August 23 for abdominal pain and diarrhea. He missed dialysis on because of his abdominal pain. he was found to have a potassium of 6.3 was treated with lactulose, potassium went down to 4.8. 0800 Mavis Vazquez, accepts patient has [facility] Critical Care Time <Dilip Fernández MD - Last Filed: 08/27/23 23:19> Critical Care Time Critical Care Time: Yes Total Critical Care Time: 35 Attestation: The high probability of a clinically significant, sudden or life threatening deterioration of the [cardiopulmonary, renal, cardiovascular] system(s) required my full and direct attention, intervention and personal management. The aggregate critical care time was [35] minutes. This time is in addition to time spent performing reported procedures but includes the following: [x] Data Review and interpretation [x] Patient assessment and monitoring of vital signs [x] Documentation [x] Medication orders and management Discharge Plan Departure Patient Disposition: [facility] Clinical Impression: Acute dyspnea, Pneumonia, Hypoxia, History of hemodialysis Prescriptions: No Action tamsulosin [Flomax] 0.4 MG capsule,extended release 24hr 0.4 mg PO BID Qty: 0 fexofenadine 180 MG tablet 180 mg PO QDAY Qty: 0 pravastatin 20 MG tablet 20 mg PO BEDTIME Qty: 0 multivitamin [Multiple Vitamins] 1 EACH tablet 1 tab PO QDAY Qty: 0 meclizine 25 MG tablet 25 mg PO PRN PRN (Reason: Vertigo) Qty: 0 tadalafil [Cialis] 20 MG tablet 20 mg PO PRN PRN (Reason: Sexual Activity) Qty: 0 Patient Comments: did not confirm with patient. polyethylene glycol 3350 [Miralax] 17 gram Powder In Packet 1 packet PO DAILY Vitamin C 1 tab PO DAILY vitamin E 1 cap PO DAILY amlodipine 5 mg Tablet 5 mg PO DAILY propranolol 10 mg Tablet 10 mg PO BID gemfibrozil 600 mg Tablet 600 mg PO BID hyoscyamine sulfate 0.125 mg Tablet 1 tab PO DIRECTED PRN (Reason: as directed) amoxicillin-pot clavulanate 875-125 mg tablet 1 tab PO Q12H Qty: 20 0RF cholecalciferol (vitamin D3) 50 mcg (2,000 unit) capsule 50 mcg PO DAILY losartan 50 mg tablet 50 mg PO DAILY carvedilol 12.5 mg tablet 12.5 mg PO BID Rx Instructions: must administer with a meal/food aspirin [Adult Low Dose Aspirin] 81 mg tablet,delayed release (DR/EC) 81 mg PO DAILY amitriptyline 10 mg tablet 30 mg PO BEDTIME albuterol sulfate 90 mcg/actuation HFA aerosol inhaler 2 puff inhalation Q8-12H PRN (Reason: shortness of breath or wheezing) Qty: 6.7 5RF Referrals: Irasema Collins PA-C [Primary Care Provider] -
[2023-08-26] MEDS: ALBUTEROL/IPRATROPIUM 3 ML AMPUL INH (21:41)
[2023-08-26 21:58] LABS: Adenovirus Not Detected (Not Detect); B. parapertussis Not Detected (Not Detecte); Bordetella pertussis Not Detected (Not Detect); Chlamydophila pneumoniae Not Detected (Not Detect); Coronavirus 229E Not Detected (Not Detect); Coronavirus HKU1 Not Detected (Not Detect); Coronavirus NL 63 Not Detected (Not Detect); Coronavirus OC43 Not Detected (Not Detect); Human Metapneumovirus Not Detected (Not Detect); Human Rhinovirus/Enterovirus Not Detected (Not Detect); Influenza A Not Detected (Not Detect); Influenza B Not Detected (Not Detect); Mycoplasma pneumoniae Not Detected (Not Detect); Parainfluenza Virus 1 Not Detected (Not Detect); Parainfluenza Virus 2 Not Detected (Not Detect); Parainfluenza Virus 3 Not Detected (Not Detect); Parainfluenza Virus 4 Not Detected (Not Detect); Respiratory Syncytial Virus Not Detected (Not Detect); SARS- CoV-2 Not Detected (Not Detecte)
[2023-08-26] MEDS: FUROSEMIDE 80 MG in SODIUM CHLORIDE 0.9% 50 ML 116 MG IV (21:59)
[2023-08-26] MEDS: NITROGLYCERIN OINT 1 INCH/GM OINT...G. 1.5 INCH TOP (22:01)
[2023-08-26] MEDS: cefTRIAXone 1,000 MG in SODIUM CHLORIDE 0.9% 100 ML 200 MG IV (22:50)
[2023-08-26] MEDS: AZITHROMYCIN 250 MG TABLET 500 MG PO (22:51)
[2023-08-27] VITALS (30 sets, daily range): BP systolic 180–221; BP diastolic 78–102; PULSE 75–93; RESP 13–27; O2SAT 88–98
[2023-08-27] MEDS: MORPHINE 2 MG/ML INJ IV (01:29)
--- NOTE | 2023-08-27 01:30 | PC.NURSE ---
pt moved to 12 and placed on hospital bed for comfort and to decrease noise lights dimmed and warm blankets given
--- NOTE | 2023-08-27 08:10 | PC.NURSE ---
Nitro paste removed per Provider order. Chest wiped clean with cloth.
[2023-08-27] MEDS: ACETAMINOPHEN 325 MG TABLET 975 MG PO (08:15)
[2023-08-27] MEDS: AMLODIPINE 5 MG TABLET PO (08:15)
[2023-08-27] MEDS: carvediloL 12.5 MG TABLET PO (08:16)
[2023-08-27] MEDS: LOSARTAN 50 MG TABLET PO (08:16)
--- NOTE | 2023-08-27 09:16 | EKG_ITS ---
[facility] [address] [place] [address] Test Date: 2023-08-27 Pat Name: Allan Bruno Department: [facility] Room: Gender: Male Transplant Rn: KEVIN : 1960 Requested By: Order Number: [id number] Reading MD: Hunter Marquis Measurements Intervals [place] Rate: 88 P: 25 [place]: 164 QRS: -31 QRSD: 112 T: 16 QT: 406 QTc: 491 Interpretive Statements Normal sinus rhythm Left axis deviation Incomplete right bundle branch block Moderate voltage criteria for LVH, may be normal variant ( R in aVL , Frank product ) Prolonged QT Electronically Signed On 08-30-2023 9:13:54 PDT by Hunter Marquis
--- NOTE | 2023-08-27 09:19 | PC.NURSE ---
Report given to KASSIDY Maki at [facility]. Pt going to room 3009 NPC unit. Called at [phone]
[2023-08-27] MEDS: PROPRANOLOL 10 MG TABLET PO (09:23)
[2023-08-27] MEDS: polyethylene glycoL 3350 17 GM POWD.PACK PO (09:23)
--- NOTE | 2023-08-27 09:33 | PC.NURSE ---
Follow up call given to Lora with [facility] facility
== END 2023-08-27 10:14 | disposition short-term general hospital (02) ==
PROVIDERS: Emergency Medicine; Emergency Provider Emergency Medicine; PCP Physician Assistant Medical
DX: J18.9 Pneumonia, unspecified organism (principal); R09.02 Hypoxemia; R06.00 Dyspnea, unspecified; Z11.52 Encounter for screening for COVID-19; Z90.2 Acquired absence of lung [part of]; Z90.5 Acquired absence of kidney
CPT/HCPCS: 36415; 71045; 80053; 82962; 83605; 83880; 84484; 85025; 85610; 87040; 87633; 93005; 94640; 96365; 96367; 96375; 99285; 99291; J0696; J1940; J2270

== ENCOUNTER 2023-11-01 19:38 | Emergency (ER) | payer MEDICARE, OTHER, SELFPAY ==
[2023-11-01 19:51] VITALS: BP 159/75; PULSE 72; RESP 12; TEMP 36.7; O2SAT 98; BMI 29.1
--- NOTE | 2023-11-01 19:55 | DI.RAD.S_ITS ---
PROCEDURE: XR RIBS RT MIN 3V W CXR 1V INDICATIONS: Fall into coffee table right rib pain TECHNIQUE: 2 views of the ribs were acquired, along with a single view chest. COMPARISON: None. FINDINGS: Surgical changes and devices: None. Bones and chest wall: No fractures or dislocations. No suspicious bony lesions. Overlying soft tissues appear unremarkable. Lungs and pleura: No pleural effusions or pneumothorax. Lungs appear clear. Mediastinum: Mediastinal contours appear normal. Heart size is normal. IMPRESSION: No displaced rib fracture or pneumothorax. Dictated by: Tom Suarez M.D. on 11/01/2023 at 20:17 Approved by: Tom Suarez M.D. on 11/01/2023 at 20:19
--- NOTE | 2023-11-01 21:48 | ED_ITS ---
HPI - Fall General Chief Complaint: Fall Stated Complaint: rt rib pain s/p fall into coffee table Time Seen by Provider: 11/01/23 21:25 Source: patient Mode of arrival: Ambulatory History of Present Illness HPI Narrative: Patient presents for R rib pain. Slipped on a blanket on the floor and landed on his R side onto a coffee table. Denies other injuries. Related Data Home Medications Medication Instructions Recorded Confirmed fexofenadine 180 mg tablet 180 mg PO QDAY #0 tabs 11/04/15 09/13/23 meclizine 25 mg tablet 25 mg PO PRN PRN Vertigo ##0 11/04/15 09/13/23 multivitamin (Multiple Vitamins 1 tab PO QDAY #0 tabs 11/04/15 09/13/23 tablet) pravastatin 20 mg tablet 20 mg PO BEDTIME ##0 11/04/15 09/13/23 tamsulosin 0.4 mg capsule (Flomax) 0.4 mg PO BID ##0 11/04/15 09/13/23 Vitamin C 1 tab PO DAILY 09/19/17 09/13/23 amlodipine 5 mg tablet 5 mg PO DAILY 09/19/17 09/13/23 gemfibrozil 600 mg tablet 600 mg PO BID 09/19/17 09/13/23 hyoscyamine sulfate 0.125 mg tablet 1 tab PO DIRECTED PRN as 09/19/17 09/13/23 directed polyethylene glycol 3350 17 gram 1 packet PO DAILY 09/19/17 09/13/23 oral powder packet (Miralax) propranolol 10 mg tablet 10 mg PO BID 09/19/17 09/13/23 vitamin E 1 cap PO DAILY 09/19/17 09/13/23 amitriptyline 10 mg tablet 30 mg PO BEDTIME 02/19/20 09/13/23 aspirin 81 mg tablet,delayed 81 mg PO DAILY 02/19/20 09/13/23 release (Adult Low Dose Aspirin) carvedilol 12.5 mg tablet 12.5 mg PO BID 02/19/20 09/13/23 cholecalciferol (vitamin D3) 50 50 mcg PO DAILY 02/19/20 09/13/23 mcg (2,000 unit) capsule losartan 50 mg tablet 50 mg PO DAILY 02/19/20 09/13/23 Previous Rx's Medication Instructions Recorded albuterol sulfate 90 mcg/actuation 2 puff inhalation Q8-12H PRN 01/03/23 aerosol inhaler shortness of breath or wheezing #6.7 grams Allergies Allergy/AdvReac Type Severity Reaction Status Date / Time No Known Drug Allergies Allergy Verified 11/01/23 19:55 Patient History Medical History Lumbar foraminal stenosis Spondylolisthesis at L5-S1 level Facet arthropathy, lumbar Degenerative joint disease of foot Lumbosacral radiculopathy at S1 Sensory peripheral neuropathy Hypertension Renal insufficiency Surgical History History of lung surgery H/O left knee surgery Family History Father Natural with unknown cause Hypertension Heart disease Social History Smoking Status: Never smoker Smoking Status: Never smoker alcohol intake frequency: other Substance Use Type: does not use Exam Initial Vital Signs Initial Vital Signs: Vital Signs Temperature 98.1 F 11/01/23 19:51 Pulse Rate 72 11/01/23 19:51 Respiratory Rate 12 11/01/23 19:51 Blood Pressure 159/75 H 11/01/23 19:51 Pulse Oximetry 98 11/01/23 19:51 Oxygen Delivery Method Room Air 11/01/23 19:51 Const: Awake, alert, no acute distress, nontoxic appearing Cardiac: regular rate, regular rhythm RESP: unlabored, clear bilaterally, no wheezing Chest: Right-sided tenderness to palpation without crepitus Skin: Warm, Dry, intact, no rashes Neuro: AO x3, CN II-XII grossly intact, moves all extremities Course Orders Ordered: ED Orders 11/01/23 19:55 XR ribs RT min 3V w CXR1V Stat Discontinued Medications Hydrocodone Bitart/Acetaminophen (Hydrocodone/Acet 5/325 Prepack) 1 bottle MISC DIRECTED ONE Stop: 11/01/23 21:49 Last Admin: 11/01/23 21:55 Dose: 1 bottle Documented By: AB Hydrocodone Bitart/Acetaminophen (Hydrocodone/Acet 5/325 Tablet) 1 tab PO NOW ONE Stop: 11/01/23 21:49 Last Admin: 11/01/23 21:55 Dose: 1 tab Documented By: Lidocaine (Lidocaine 5% Patch) 1 each TOP NOW ONE Stop: 11/01/23 21:49 Last Admin: 11/01/23 21:55 Dose: 1 each Documented By: Vital Signs Vital signs: Vital Signs - 8 hr 11/01/23 19:51 11/01/23 22:00 Temperature 98.1 F Pulse Rate 72 71 Respiratory Rate 12 16 Blood Pressure 159/75 H 159/73 H Pulse Oximetry 98 97 Oxygen Delivery Method Room Air Room Air MDM - Fall Imaging Data Chest x-ray: Radiologist's Impression: PROCEDURE: XR RIBS RT MIN 3V W CXR 1V INDICATIONS: Fall into coffee table right rib pain TECHNIQUE: 2 views of the ribs were acquired, along with a single view chest. COMPARISON: None. FINDINGS: Surgical changes and devices: None. Bones and chest wall: No fractures or dislocations. No suspicious bony lesions. Overlying soft tissues appear unremarkable. Lungs and pleura: No pleural effusions or pneumothorax. Lungs appear clear. Mediastinum: Mediastinal contours appear normal. Heart size is normal. IMPRESSION: No displaced rib fracture or pneumothorax. Dictated by: Tom Suarez M.D. on 11/01/2023 at 20:17 Approved by: Tom Suarez M.D. on 11/01/2023 at 20:19 [facility] Narrative Medical decision making narrative: Fall onto right side of coffee table. Complaining of right rib pain. X-rays do not show fracture but patient is in a significant amount of pain. He has 1 kidney and history of renal insufficiency, so pain medication options are limite d. A short course of pain medications sent to pharmacy of choice. Discharge Plan Departure Patient Disposition: Home Clinical Impression: Contusion of rib Qualifiers: Encounter type: initial encounter Laterality: right Qualified Code(s): S20.211A - Contusion of right front wall of thorax, initial encounter Instructions: DI for Rib Contusion Activity Restrictions/Additional Instructions: Your X ray did not show any displaced fracture. Follow up with your primary care doctor. You may apply ice and lidocaine patches to the areas of most pain. Take deep breaths even if it hurts to prevent the development of pneumonia Prescriptions: No Action tamsulosin [Flomax] 0.4 MG capsule,extended release 24hr 0.4 mg PO BID Qty: 0 fexofenadine 180 MG tablet 180 mg PO QDAY Qty: 0 pravastatin 20 MG tablet 20 mg PO BEDTIME Qty: 0 multivitamin [Multiple Vitamins] 1 EACH tablet 1 tab PO QDAY Qty: 0 meclizine 25 MG tablet 25 mg PO PRN PRN (Reason: Vertigo) Qty: 0 polyethylene glycol 3350 [Miralax] 17 gram Powder In Packet 1 packet PO DAILY Vitamin C 1 tab PO DAILY vitamin E 1 cap PO DAILY amlodipine 5 mg Tablet 5 mg PO DAILY propranolol 10 mg Tablet 10 mg PO BID gemfibrozil 600 mg Tablet 600 mg PO BID hyoscyamine sulfate 0.125 mg Tablet 1 tab PO DIRECTED PRN (Reason: as directed) cholecalciferol (vitamin D3) 50 mcg (2,000 unit) capsule 50 mcg PO DAILY losartan 50 mg tablet 50 mg PO DAILY carvedilol 12.5 mg tablet 12.5 mg PO BID Rx Instructions: must administer with a meal/food aspirin [Adult Low Dose Aspirin] 81 mg tablet,delayed release (DR/EC) 81 mg PO DAILY amitriptyline 10 mg tablet 30 mg PO BEDTIME albuterol sulfate 90 mcg/actuation HFA aerosol inhaler 2 puff inhalation Q8-12H PRN (Reason: shortness of breath or wheezing) Qty: 6.7 5RF Referrals: Irasema Collins PA-C [Primary Care Provider] - Stand Alone Forms: Patient Portal/API
[2023-11-01] MEDS: HYDROCODONE/ACET 5/325 PREPACK 1 BOTTLE MISC (21:55)
[2023-11-01] MEDS: HYDROCODONE/ACET 5/325 TABLET 1 TAB PO (21:55)
[2023-11-01] MEDS: LIDOCAINE 5% PATCH 1 EACH TOP (21:55)
[2023-11-01 22:00] VITALS: BP 159/73; PULSE 71; RESP 16; O2SAT 97
== END 2023-11-01 22:01 | disposition home or self-care (01) ==
PROVIDERS: Emergency Provider Emergency Medicine; PCP Physician Assistant Medical
DX: S20.211A Contusion of right front wall of thorax, initial encounter (principal); W01.190A Fall on same level from slipping, tripping and stumbling with subsequent striking against furniture, initial encounter
CPT/HCPCS: 71101; 99283

== ENCOUNTER → 2023-12-26 15:22 | Outpatient (CLI) | payer MEDICARE, OTHER, SELFPAY ==
--- NOTE | 2023-12-26 15:24 | DI.RAD.S_ITS ---
PROCEDURE: XR LUMBAR SPINE MIN 4V INDICATIONS: BACK PAIN TECHNIQUE: 5 views of the lumbar spine acquired, including flexion and extension views. COMPARISON: None. FINDINGS: Bones: Generalized decreased osseous mineralization noted. Disc space narrowing hypertrophic facet joints present in the lower lumbar spine. L5 pars defects associated grade 3 anterior spondylolisthesis at L5-S1 Soft tissues: Overlying bowel gas pattern is normal. No suspicious soft tissue calcifications. Flexion/extension: There is normal range of motion, with preserved normal alignment. 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 on 12/26/2023 at 18:26
== END ==
PROVIDERS: PCP Physician Assistant Medical; Referring Provider Physical Medicine & Rehabilitation; Visit Provider Physical Medicine & Rehabilitation
DX: M43.17 Spondylolisthesis, lumbosacral region (principal); M47.816 Spondylosis without myelopathy or radiculopathy, lumbar region; M48.061 Spinal stenosis, lumbar region without neurogenic claudication; M51.369 Other intervertebral disc degeneration, lumbar region without mention of lumbar back pain or lower extremity pain; M85.88 Other specified disorders of bone density and structure, other site
CPT/HCPCS: 72110

== ENCOUNTER 2024-12-12 08:22 | Outpatient (CLI) | payer MEDICARE, OTHER, SELFPAY ==
[2024-12-12 08:35] VITALS: BP 123/60; PULSE 67; RESP 16; TEMP 36.6; O2SAT 96
--- NOTE | 2024-12-12 08:50 | PC.NURSE ---
Procedure cancelled r/t patient's blood glucose being elevated above MD's parameters. Dr. Virgen discussed with patient risks of procedure with this high of blood glucose, recommended patient see his PCP for improving glucose levels then re-schedule procedure. Patient ambulatory leaving pre-procedure area. His spouse is present to drive him home.
== END 2024-12-12 08:50 | disposition home or self-care (01) ==
LOC: RAD 08:24
PROVIDERS: PCP Physician Assistant Medical; Referring Provider Physical Medicine & Rehabilitation; Visit Provider Physical Medicine & Rehabilitation
DX: M54.17 Radiculopathy, lumbosacral region (principal); E11.65 Type 2 diabetes mellitus with hyperglycemia
CPT/HCPCS: 82962; 99214